=== PATIENT | female | born 1975 | race Caucasian/White ===

== ENCOUNTER → 2019-03-19 14:19 | Outpatient (BNVA) | payer SELFPAY | PROVIDERS: Family Provider Family Medicine; PCP Family Medicine; Visit Provider Anesthesiology | DX: M54.40 Lumbago with sciatica, unspecified side (principal); M25.551 Pain in right hip; Z79.891 Long term (current) use of opiate analgesic | CPT/HCPCS: 99214 ==

== ENCOUNTER → 2019-07-16 09:17 | Outpatient (BNVA) | payer OTHER, SELFPAY | PROVIDERS: Family Provider Family Medicine; PCP Family Medicine; Visit Provider Anesthesiology | DX: M54.41 Lumbago with sciatica, right side (principal); Z79.891 Long term (current) use of opiate analgesic | CPT/HCPCS: 99213; 99214 ==

== ENCOUNTER → 2019-09-03 14:00 | Outpatient (BNVA) | payer OTHER, SELFPAY | PROVIDERS: Family Provider Family Medicine; PCP Family Medicine; Visit Provider Nurse Practitioner | DX: M54.41 Lumbago with sciatica, right side (principal); Z79.891 Long term (current) use of opiate analgesic | CPT/HCPCS: 99213 ==

== ENCOUNTER → 2019-11-14 13:37 | Outpatient (BNVA) | payer OTHER, SELFPAY | PROVIDERS: Family Provider Family Medicine; PCP Family Medicine; Visit Provider Nurse Practitioner | DX: M54.41 Lumbago with sciatica, right side (principal); Z79.891 Long term (current) use of opiate analgesic | CPT/HCPCS: 99213 ==

== ENCOUNTER → 2020-01-16 13:38 | Outpatient (BNVA) | payer OTHER, SELFPAY | PROVIDERS: Family Provider Family Medicine; PCP Family Medicine; Visit Provider Nurse Practitioner | DX: M54.41 Lumbago with sciatica, right side (principal); Z79.891 Long term (current) use of opiate analgesic | CPT/HCPCS: 99213 ==

== ENCOUNTER 2020-02-28 12:52 | Outpatient (CLI) | payer OTHER, SELFPAY ==
--- NOTE | 2020-02-28 12:58 | MM_ITS ---
WS: [id number] BILATERAL DIGITAL SCREENING MAMMOGRAPHY WITH CAD CLINICAL INFORMATION: SCREEN HISTORY: Screening mammogram. No current complaints. COMPARISON: 015 TECHNIQUE: Bilateral CC and MLO views. FINDINGS: Scattered fibroglandular densities bilaterally. No suspicious focal mass, asymmetry, calcifications, or architectural distortion. No evidence of malignancy. Punctate and lucent centered calcifications. MM/[place] [id number] IMPRESSION: BI-RADS: 2-Benign FOLLOW UP: 1 Year Follow-up Recommend return to annual screening mammography.
== END 2020-02-28 12:53 | disposition home or self-care (01) ==
LOC: RADSHAW 12:55
PROVIDERS: PCP Family Medicine; Visit Provider Family Medicine
DX: Z12.31 Encounter for screening mammogram for malignant neoplasm of breast (principal); F41.9 Anxiety disorder, unspecified; F32.9 Major depressive disorder, single episode, unspecified; E78.5 Hyperlipidemia, unspecified
CPT/HCPCS: 77067; 80053; 80061; 82306; 82607; 84439; 84443; 84481; 85025

== ENCOUNTER → 2020-03-19 14:05 | Outpatient (BNVA) | payer OTHER, SELFPAY | PROVIDERS: Family Provider Family Medicine; PCP Family Medicine; Visit Provider Nurse Practitioner | DX: M54.41 Lumbago with sciatica, right side (principal); Z79.891 Long term (current) use of opiate analgesic | CPT/HCPCS: 99213 ==

== ENCOUNTER → 2020-05-14 14:00 | Outpatient (BNVA) | payer OTHER, SELFPAY | PROVIDERS: Family Provider Family Medicine; PCP Family Medicine; Visit Provider Nurse Practitioner | DX: M54.41 Lumbago with sciatica, right side (principal); Z79.891 Long term (current) use of opiate analgesic | CPT/HCPCS: 99212; 99213 ==

== ENCOUNTER → 2020-05-19 15:49 | Outpatient (BNVA) | payer OTHER, SELFPAY | PROVIDERS: Family Provider Family Medicine; PCP Family Medicine; Visit Provider Nurse Practitioner Family | DX: E03.9 Hypothyroidism, unspecified (principal); R79.89 Other specified abnormal findings of blood chemistry; E55.9 Vitamin D deficiency, unspecified; E78.5 Hyperlipidemia, unspecified | CPT/HCPCS: 80053; 80061; 82306; 84443 ==

== ENCOUNTER → 2020-07-15 14:12 | Outpatient (BNVA) | payer OTHER, SELFPAY | PROVIDERS: Family Provider Family Medicine; PCP Family Medicine; Visit Provider Anesthesiology | DX: G89.29 Other chronic pain (principal); M54.41 Lumbago with sciatica, right side; M17.0 Bilateral primary osteoarthritis of knee; Z79.1 Long term (current) use of non-steroidal anti-inflammatories (NSAID); Z79.891 Long term (current) use of opiate analgesic | CPT/HCPCS: 99214 ==

== ENCOUNTER → 2020-08-14 11:20 | Outpatient (BNVA) | payer OTHER, SELFPAY | PROVIDERS: Family Provider Family Medicine; PCP Family Medicine; Visit Provider Obstetrics & Gynecology | DX: N81.9 Female genital prolapse, unspecified (principal); Z20.822 Contact with and (suspected) exposure to COVID-19 | CPT/HCPCS: 87635 ==

== ENCOUNTER 2020-08-19 15:02 | Observation (INO) | payer OTHER, SELFPAY ==
[2020-08-14 12:02] VITALS: BMI 50.4
--- NOTE | 2020-08-14 12:16 | ANES.PREANE2 ---
Pre-Anesthetic Assessment Pre-Anesthetic Assessment: Height/Weight: Height 1.82 m Weight 166.468 kg Proposed Procedure: Operation Date: 08/19/20 10:25 Proposed Procedures p Anterior Repair Anterior Colporrhaphy 06758 [id number] 29443 N81.9(Not Applicable) - Seb Oconnell MD s Posterior Repair(Not Applicable) - Seb Oconnell MD s midurthral single incision sling(Not Applicable) - Seb Oconnell MD s Sacrospinous Ligament Suspension(Not Applicable) - Seb Oconnell MD Was Beta Abraham taken within 24 hours: N/A Was Clonidine taken within 24 hours: N/A Social: Social History: No alcohol and No tobacco Exam: Pre-Anes Outpt Exam: alert, oriented x 3, clear to auscultation bilaterally and regular rate & rhythm Airway: Submandibular: WNL Cervical ROM: WNL MP: 2 Dentition: Full Metabolic: Metabolic: Hyperlipidemia, Morbid obesity and Thyroid Musc/skel: Musc/skel: Lower Back Pain Neuropsych: Neuropsych: Anxiety and Depression Anesthetic Plan: ASA status: 3 Anesthesia: General Risk of > 500 ml blood loss (7ml/kg in children): No PFSH Anesthesia PFSH: Medical History Back pain of lumbosacral region with sciatica Encounter for long-term (current) use of NSAIDs Encounter for long-term use of opiate analgesic Opioid contract exists Surgical History H/O knee surgery History of hysterectomy Family History Mother Hyperlipidemia Thyroid condition Grandmother Hyperlipidemia maternal Thyroid condition maternal Sister Thyroid condition x2 Family/Other Breast cancer maternal side but unknown who Other CAD (coronary artery disease) Diabetes Hypertension Denies family history of Colon cancer Ovarian cancer Clotting disorder Bleeding disorder Uterine cancer Stroke Social History (Updated 08/14/20 @ 10:34 by Nathalia Calix RN) Smoking and tobacco status: never smoked Second hand smoke exposure: Yes Alcohol intake: never Substance/Drug Use: never Data Anesthesia Cardiac Studies: No Data to Display
[2020-08-19] VITALS (22 sets, daily range): BP systolic 105–151; BP diastolic 61–96; PULSE 77–99; RESP 14–20; TEMP 36.2–37.3; O2SAT 90–98; BMI 50.4
[2020-08-19] MEDS: lactated ringers 500 ML IV (09:30)
[2020-08-19] MEDS: enoxaparin 30 mg/0.3 mL Syringe SUBCUT (09:33)
[2020-08-19] MEDS: scopolamine 1.5 Patch 1 PATCH TRANSDERMA (09:35)
[2020-08-19] MEDS: sodium chloride 0.9% 1,000 ML 30 ML IV (10:10)
--- NOTE | 2020-08-19 10:39 | P.ANESUD_ITS ---
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 Proposed Procedure: Operation Date: 08/19/20 10:55 Proposed Procedures p Anterior Repair Anterior Colporrhaphy 27063 [id number] 81000 N81.9(Not Applicable) - Seb Oconnell MD s Posterior Repair(Not Applicable) - Seb Oconnell MD s midurthral single incision sling(Not Applicable) - Seb Oconnell MD s Sacrospinous Ligament Suspension(Not Applicable) - Seb Oconnell MD Any changes to Pre-Anesthetic Assessment?: No Last Intake: Intake Last Liquid Date 08/18/20 Last Liquid Time 22:00 Last Solid Date 08/18/20 Last Solid Time 20:00 Vitals: Temperature 98.2 F 08/19/20 09:05 Temperature Source Temporal Artery S can 08/19/20 09:05 Pulse Rate 79 08/19/20 09:05 Respiratory Rate 18 08/19/20 09:05 Blood Pressure 151/96 08/19/20 09:05 Blood Pressure Laura n 114 08/19/20 09:05 Pulse Oximetry 98 08/19/20 09:05 Oxygen Delivery Me thod 08/19/20 09:22 Exam: Pre-Anes Outpt Exam: alert, oriented x 3, clear to auscultation bilaterally and regular rate & rhythm Cardiac Studies: No Data to Display
[2020-08-19 10:43] LABS: Add Urine Microscopic? YES; Bilirubin Urine Neg (Negative); Blood Urine 2+ (Negative); Glucose Urine UA Norm (Normal); Ketones Urine Negative (Negative); Leukocyte Esterase Urine Negative (Negative); Nitrate Urine Negative (Negative); Protein Urine Neg (Negative); Urine Appearance Clear (CLEAR); Urine Color Straw (Yellow); Urobilinogen Urine Norm (Negative); pH Urine 7 (5-7)
[2020-08-19 10:44] LABS: Basophils % 0.7 %; Eosinophils # 0.2 10^3/uL (0.0-0.8); Eosinophils % 3.1 %; Hematocrit 40.5 % (37.0-47.0); Hemoglobin 13.2 g/dL (11.5-15.3); Lymphocytes # 1.7 10^3/uL (0.8-4.8); Lymphocytes % 29.3 %; Mean Corpuscular HGB Conc 32.6 g/dL (30.0-36.0); Mean Corpuscular Hemoglobin 30.7 pg (28.0-34.0); Mean Corpuscular Volume 94.2 fL (81-99); Mean Platelet Volume 11.7 fL (7.4-10.4); Monocytes # 0.5 10^3/uL (0.2-0.9); Monocytes % 8.7 %; Neutrophils # 3.33 10^3/uL (1.8-7.7); Nucleated Red Blood Cells % 0 %; Platelet Count 258 10^3/cmm (130-400); Red Cell Distribution Width 12.3 % (12.1-15.1); White Blood Count 5.7 10^3/uL (4.0-10.0)
[2020-08-19 10:51] LABS: Add Urine Culture? No; Bacteria Urine TRACE /hpf; Mucus Urine 1+ /hpf; Squamous Epithelial Cell Urine 0-4 /hpf (0-5); WBC Urine 0-4 /hpf (0-5)
[2020-08-19 11:09] LABS: Anion Gap 16.2 (5-19); Blood Urea Nitrogen 15 mg/dL (6-20); Calcium 9.1 mg/dL (8.5-10.5); Carbon Dioxide 24 mmol/L (22-29); Chloride 106 mmol/L (98-107); Glomerular Filtration Rate 133.4 mL/min (90-130); Glucose 85 mg/dL (65-115); Osmolality Calculated 294 mOsm/kg (285-295); Potassium 4.2 mmol/L (3.5-5.1); Sodium 142 mmol/L (136-145)
[2020-08-19] MEDS: acetaminophen 500 mg Tablet 1000 MG PO (12:17)
--- NOTE | 2020-08-19 12:31 | W.PM.OPSUD ---
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
--- NOTE | 2020-08-19 14:56 | P.OP_ITS ---
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 The abdomen, vulva and vagina were prepped and draped in a sterile manner. A time out procedure was performed. Posterior colpoperineorrhaphy was performed with Allis clamps to grasp hymenal caruncles to allow 2-3 fingerbreadths caliber; infiltrated with 1% Lidocaine with epinephrine before triangular incision to excise fibrotic subdermal rectovaginal tissue from old perineal laceration. Fascia dissected off towards vaginal cuff and deemed weakened and thinned-out in midline. The posterior vaginal mucosa is opened in the routine fashion as described previously in Posterior Repair. A finger is inserted through the incision in the posterior vaginal mucosa, dissecting out the rectovaginal space (RVS). The right rectal pillar (RRP) is identified. The rectal pillar can be bluntly perforated either with the finger and with the tip of a long Ольга clamp. A Breisky- Navratil retractor is used for exposing the rectovaginal space in order to enter the pararectal space with retraction of the cardinal ligament, vagina, and rectum. Displacing the rectum to the left and the cardinal ligament and ureter anteriorly. A sponge dissector is used to bluntly dissect the sacrospinous ligament removing areolar tissue. The ischial spine was palpated directly, and a area approximately 2 cm medial to the spine was selected for insertion of the Anchorsure transvaginal sacrospinous fixation system. One end of the suture of Anchoresure system inserted through the sacrospinous ligament is placed through the muscular layer of the vagina. In a similar manner, the second suture is placed. The opposite end of the suture in the sacrospinous ligament is left free and held on a small hemostat. Then traction on this suture will draw the vaginal vault directly to the ligament, where a square knot affixes it to the sacrospinous ligament. After the ata stich is tied the second safety stich is tied. Then the colporrhaphy/vaginal repair is carried out in routine fashion, colporrhaphy performed with interrupted mattress 0-Vicryl sutures.The stage 1 cystocele resolved after fixation and proceeded with the single incision miduretral sling. The anterior vaginal mucosa beneath the midurethra was infiltrated with 0.5% Marcaine with epinephrine. A vertical midline incision was made beneath the midurethra, nearly 1.5 cm length. Careful submucosal dissection was performed bilaterally up to the interior portion of the inferior pubic ramus. The insertion of adductor longus tendon on the patient?s pubic ramus was identified as reference land pippa. Palpated the notch along the internal edge of ischiopu bic ramus where the adductor longus tendon and the inferior pubic ramus meet. The Altis single incision sling (SIS) was selected. With thin porcine graft the mesh of the sling was lined anteriorly and posteriorly with the graft. Then the needle of the SIS inserted aiming at the location of this notch. One of the integrated self-fixating tips place onto the needle by sliding it over the end of the needle. The needle/sling assembly was inserted toward the location of identified reference notch making sure that the flat of the handle is perpendicular to the desired path. The needle was tracked along the posterior surface of the ischiopubic ramus until the midline pippa on the mesh is approximately at the midline position under the urethra. The needle was removed and the same was repeated on the contralateral side until the appropriate sling tension under the urethra was achieved ensuring that the mesh lays flat. The needle was removed and vaginal incision was closed in a running interlocking fashion with 2-0 Vicryl. Then the Oquendo catheter was removed and cystoscope was inserted. The bladder was filled with sterile water. Complete evaluation of the bladder mucosa was performed noting no lacerations, dimpling, tears, bleeding of the mucosa or muscular layers. Both ureteral orifices were identified. Prompt excretion of urine from both ureteral orifices was noted. Cystoscope was withdrawn. The Oquendo catheter was replaced. Excellent hemostasis was obtained. A vaginal pack is placed overnight as postoperative support for the vaginal tissues after graft placement and closure of vaginal incisions. Sponge, lap, needle, and instrument counts were correct times three. The patient was taken to the recovery room, awake and in stable condition.
--- NOTE | 2020-08-19 15:10 | P.PCN_ITS ---
PACU note PACU note: VSS, Good respiratory effort, report to COMMUNICATIONS EDITOR Post-Anesthesia Exam: awake
--- NOTE | 2020-08-19 15:10 | PM.PACU ---
PACU note PACU note: VSS, Good respiratory effort, report to HAIRSPRING TRUER Post-Anesthesia Exam: awake
[2020-08-19] MEDS: fentaNYL 50 mcg/mL INJ 2mL IVP (15:16)
--- NOTE | 2020-08-19 16:22 | PC.NURSE ---
call made to at 1422 lis to active bleeding at the vagina, did not answer, voicemail left.
[2020-08-19] MEDS: lactated ringers 1,000 ML 999 ML IV (17:11)
[2020-08-19] MEDS: sodium chloride 0.9% 100 ML 999 ML IV (17:47)
--- NOTE | 2020-08-19 17:48 | PC.NURSE ---
Juan Pablo GIL, Rose Marie PROGRAMMING DEVELOPMENT PROJECT MANAGER at bedside to take pt down to OR by bed. report given. 1 liz under patient with heavy saturation. 1 lap inside patient vaginal vault.
[2020-08-19] MEDS: ceFAZolin 3,000 MG in sodium chloride 0.9% (100 ml) 100 ML 200 MG IV (18:17)
--- NOTE | 2020-08-19 18:45 | PM.OP ---
Operative Report Date of procedure: August 19, 2020 Pre-op Diagnosis: POP Q vaginal prolapse rectocele stage III. vaginal bleeding Post-op diagnosis: same Post-op Findings: Parauretrhal bleeding and posterior colporrhaphy incision bleeding Procedure Done: Vaginal exam. under anesthesia. Suburethral incision revision. Application of Surgiflow Vaginal packing. Pathology: none sent Anesthesia: General Estimated blood loss (mL): 100 IV fluids (mL): 1,200 Urine output (mL): 100 Complications: bleeding Condition: stable Disposition: PACU Procedure: After obtaining informed consent, the patient was taken to the operating room and placed in the supine position, given general anesthesia, and prepped and draped in sterile fashion. The old boateng cathere was removed. The abdomen, vulva and vagina were prepped and draped in a sterile manner. A new boateng catheter was placed. The vaginal mucosea noted to be bleeding from edges of posterior colporrhaphy and bleeding from paraurethral area. The suburthral incision was opened and slow bleeeding noted. The paraurethral are was treated with Surgiflow hemostatic agent and the incision was closed using O2 Vicril. Excellent hemostasis was obtained. A vaginal pack is placed overnight as postoperative support for the vaginal tissues after closure of vaginal incision. Sponge, lap, needle, and instrument counts were correct times three. The patient was taken to the recovery room, awake and in stable condition.
--- NOTE | 2020-08-19 19:00 | PC.NURSE ---
pt arrived to floor at 1540 vitals 98.0 temp axillary, 79 HR, 16 RR, 95% on 3L o2, 121/72 BP 1620- 97.7 axillary temp, 75HR, 15 RR, 98% O2 on 3L O2, 123/85BP, heavy saturation of pad, pad change 1625-called to update him on pad change 1628- pad change due to heavy saturation of pad with soft ball size clot 1643- in room, upon arrival pt expelled golf ball size clot and the vaginal packing that was placed in surgery. 1648- 1 lap inserted into vagina with ring forceps 1650-70/38 BP 99% O2 on 3L nasal cannula, 59 HR, 13 RR, IV bolus started at 999mL/HR 1655- 87/54. 68HR,99% o2 on 3 L nasal cannula 1700- 18 gauge IV inserted in right hand and flushed with 10mL saline flush, 103/59BP, 73 HR, 99% O2 on 3L nasal Cannula 1705- patient registration representative surgery crew notified to come in 170- 1 lap removed from vagina with ring forceps, 1 lap inserted into vagina with ring forceps 1708 108/64 BP, 71 HR, 15 RR, 99% O2 on 3L nasal Cannula 1713-137/72 BP 1730- 132/72 BP, 70 HR, 98% O2 on 3L nasal Cannula 1748- surgical personal arrive to take pt via bed to OR
--- NOTE | 2020-08-19 19:07 | SUR.PHASEI ---
185: patient into pacu, simple mask at 8l o2 with sats at 97. patient has boateng bag in place and draining yellow/blue urine. vaginal packing in place. order for stat HH received. 1907: Dr Oconnell at bedside speaking with patient. patient awake but drowsy.
[2020-08-19 19:12] LABS: Hematocrit 37.2 % (37.0-47.0); Hemoglobin 11.9 g/dL (11.5-15.3)
--- NOTE | 2020-08-19 19:12 | SUR.PHASEI ---
1911: patient on room air with sats at 92
--- NOTE | 2020-08-19 19:17 | SUR.PHASEI ---
1717: reported HH results to dr matos, he said second unit of prbc can be held for right now. patient room air sat at 89, placed on 2L o2 NC and sats return to 93%. will plan to call report to floor soon.
--- NOTE | 2020-08-19 19:39 | SUR.PHASEI ---
1927: patient taken back to OB awake and drowsy. accompanied by . boateng in place and draining, vaginal packing in place. patient on 3L NC with sats at 94%. report given to cassandra.
--- NOTE | 2020-08-19 19:49 | PC.NURSE ---
pt arrived via bed by pacu nurses @ 193
[2020-08-19] MEDS: HYDROcodone-acetaminophen 5-325 mg Tablet PO (19:55)
[2020-08-19] MEDS: ketorolac 30 mg/mL INJ IVP (19:55)
--- NOTE | 2020-08-19 20:40 | ANE.PACU2 ---
Inpatient post-anesthesia follow up: Airway intact: Yes Vital signs: Temperature 98.4 F Pulse Rate 83 Respiratory Rate 19 Blood Pressure 127/82 Pulse Oximetry 93 Oxygen Delivery Me thod Nasal Cannula Oxygen Flow Rate 2 Fraction of Inspir ed Oxygen Hydration adequate: Yes Nausea and vomiting: No Pain level: 3 Mental status: Baseline
[2020-08-19] MEDS: dextrose 5%-lactated ringers 1,000 ML 125 ML IV (22:10)
[2020-08-19] MEDS: morphine 4 mg/mL SDV 1 mL 1 MG IVP (22:47)
[2020-08-20 01:00] VITALS: BP 105/57; PULSE 78; RESP 16; TEMP 36.8; O2SAT 97
[2020-08-20 05:15] VITALS: BP 108/57; PULSE 73; RESP 14; TEMP 37; O2SAT 93
[2020-08-20 06:17] LABS: Hematocrit 29.7 % (37.0-47.0); Hemoglobin 9.5 g/dL (11.5-15.3); Mean Corpuscular Hemoglobin 30.8 pg (28.0-34.0); Mean Corpuscular Volume 96.4 fL (81-99); Mean Platelet Volume 10.4 fL (7.4-10.4); Platelet Count 227 10^3/cmm (130-400); Red Blood Count 3.08 10^6/uL (4.1-5.3); White Blood Count 13.5 10^3/uL (4.0-10.0)
[2020-08-20] MEDS: dextrose 5%-lactated ringers 1,000 ML 125 ML IV (06:20)
[2020-08-20] MEDS: docusate sodium 100 mg Capsule PO (08:18)
[2020-08-20] MEDS: ibuprofen 800 mg tablet PO (08:18)
--- NOTE | 2020-08-20 09:57 | PC.NURSE ---
Dr. Oconnell at patient bedside. Removed vaginal packing which had several large clots that came with it. Dr. Oconnell was ok with the amount of clots. orders received for PVR.
--- NOTE | 2020-08-20 11:40 | P.DS_ITS ---
Discharge Providers DRUM DRIER OPERATOR Date of Admission: 08/19/20 15:02 Date of Discharge: 08/20/20 Attending Provider at Admission: Seb Oconnell MD Attending Provider at Discharge: Seb Oconnell MD Primary Care Provider: Lashon Malcolm MD Diagnoses at Discharge Discharge Diagnosis (1) POP-Q stage 3 rectocele: Status: Acute (2) MIKE (stress urinary incontinence, female): Status: Acute Reason for Visit Reason for Visit: vaginal prolapse Hospital Course Hospital Course Mrs. Orellana 45-year-old female with vault rectocele stage III and stress urinary incontinence. Admitted for planned anterior colporrhaphy, posterior colporrhaphy mid urethral sling and sacrospinous fixation. After posterior colporrhaphy and sacrospinous fixation, the patient only needed the mid urethral sling. The procedures were performed without complications. The patient did have some usual bleeding during the procedure. After the patient was transferred to her room, a couple hours after she started with significant vaginal bleeding. It was estimated that she had about 1000 ml of blood between pads, chucks and laps. She was taken back to the OR for a vaginal exam under anesthesia. She has some mild bleeding from the edges at the vaginal mucosa, and from paraurethral area. The suburethral incision was opened and venous bleeding was noted. Hemostatic agent Surgi-Goran was applied and the incision was closed again, vaginal packing was applied, tranexamic acid was given, and 1 unit of red blood cell was also given during the procedure. After that the bleeding was controlled. Overnight observation was uneventful. Tolerated diet well. Ambulating without difficulty. She is afebrile and hemodynamically stable. PVR within normal limits. Physical Exam Narrative: EXAM NARRATIVE: GA: Alert and oriented ?3. HEENT: WNL. Heart: Regular rate and rhythm. Lungs: Clear to auscultation bilaterally. Abdomen: Bowel sounds present CALL TAKER: minimal bleeding. Extremities: No edema, no cyanosis, no calves pain. Urinary Catheter Management^: Oquendo: Cath Placed During This Visit: yes, but has since been removed by the nurse Reason for Continuing Indwelling Catheter: Decision to DC Catheter Urinary Catheter Date of Insertion: 08/19/20 Urinary Catheter Time of Insertion: 18:20 Date Urinary Catheter Removed: 08/20/20 Time Urinary Catheter Discontinued: 09:54 Discharge Data Data Completed and Pending: Pending at discharge Category Date Time Status ES surgery / GI i mages Routine Exams 08/19/20 12:37 Taken PACKED CELLS [Alex kocyte Reduced RBC ] Routine Lab 08/19/20 09:30 Results Type and Screen R outine Lab 08/19/20 09:30 Results Labs from last 24 hours 08/20/20 08/19/20 08/19/20 06:10 19:02 09:30 WBC 13.5 H RBC 3.08 L Hgb 9.5 L 11.9 Hct 29.7 L 37.2 MCV 96.4 MCH 30.8 MCHC 32.0 RDW 14.0 Plt Count 227 MPV 10.4 Blood Type O Positive Rho(D) Type Positive / 4+ Antibody Screen Negative Crossmatch See Detail Vitals: Last Vital Signs Temp 98.6 F 08/20/20 05:15 Pulse 73 08/20/20 05:15 Resp 14 08/20/20 05:15 BP 108/57 08/20/20 05:15 Pulse Ox 93 08/20/20 05:15 Discharge Plan Discharge Patient Disposition: Home Condition: Stable Prescriptions: New ibuprofen 800 mg tablet 800 mg PO TID PRN (Reason: pain) Qty: 60 RF: 0 hydrocodone-acetaminophen 5-325 mg tablet 1 tab PO Q4H PRN (Reason: pain) Qty: 10 RF: 0 Iron (ferrous sulfate) 325 mg (65 mg iron) tablet 325 mg PO BID Qty: 30 RF: 0 nitrofurantoin macrocrystal 100 mg capsule 100 mg PO Q24H Qty: 10 RF: 0 Colace 100 mg capsule 100 mg PO BID Qty: 90 RF: 0 Continued rosuvastatin [Crestor] 10 mg tablet 10 mg PO DAILY RF: 0 escitalopram oxalate 20 mg tablet See Rx Instructions .ROUTE .COMPLEX Qty: 30 RF: 5 diclofenac potassium 50 mg tablet 50 mg PO BID 30 Days Qty: 60 RF: 1 oxycodone 10 mg tablet 10 mg PO QID PRN (Reason: pain) 30 Days Qty: 120 RF: 0 tizanidine 4 mg tablet 4 mg PO QID PRN (Reason: muscle spasticity) 30 Days Qty: 120 RF: 1 (DME) Hinged knee brace See Rx Instructions .Route .MEDSUPPLY Qty: 1 RF: 0 cholecalciferol (vitamin D3) 125 mcg (5,000 unit) capsule 125 mcg PO DAILY Qty: 90 RF: 1 levothyroxine 50 mcg tablet See Rx Instructions .ROUTE .COMPLEX Qty: 90 RF: 0 Discharge Orders: Discharge Order (Routine); Ordered 08/20/20 Ordered By: Seb Oconnell Referrals: Seb Oconnell MD [Physician] - 09/01/20 10:45 am (Your 2 week post-op appointment is scheduled for 09/01/20 @ 10:45. Your 6 week post-op appointment is scheduled for 09/29/20 @ 10:45. ) Discharge Diet: Soft Mechanical Discharge Activity: Increase activity as tolerated Patient Instructions: Rectocele (GEN), Bladder Sling Procedures (DC), Posterior Vaginal Repair (DC), OB Discharge Report, Opioid Safety Activity Restrictions/Additional Instructions: 1. Please call [facility] on next working day to make your post-operative appointment in 2 weeks. 2. Please stay home until you come back to the clinic on first post-operative check up. 3. Please follow instructions on your medications CAREFULLY. 4. If you have abdominal incision, do not cover it unless dressing is necessary because of drainage. OK to shower, but avoid bath. Leave steri-strips until they fall off. If they are still on one week after surgery, you may remove them. 5. If you had vaginal surgery or vaginal repair, Dr. Oconnell may instruct you to take SITZ bath. 6. Yellow, blood tinged odorous vaginal discharge is usually normal after hysterectomy or vaginal surgeries. 7. No sexual intercourse, tampons, or douches until you are completely released from the post-operative care. 8. Avoid constipation by eating right and maybe using some Metamucil or Milk of Magnesia. 9. All prescription refills are given during the working hours. Please do no wait till it runs out. Call the clinic at [phone] before your medication runs out. The clinic will get in touch with your doctor to prescribe medications if necessary. 10. Please remain within 40 mile radius from our hospital because emergencies do happen now and then during the post-operative period. 11. If you have stairs at home, take one step at a time slowly and minimize the number of trips. It helps to stay in one floor for the next few days. No lifting except what you can lift by one hand until you are released from the post-operative care. 12. Driving is discouraged until you are well healed. It may be 3-4 weeks before you feel strong enough to drive. You should be able to turn and look through the rear window without pain and you should be able to push the brake pedal very hard without pain before you drive. No fast rules, but SAFETY should be your primary concern. DO NOT drive if you are on sedating medications such as narcotics. 13. Call the clinic (during working hours) to make urgent appointment or go to the Emergency room, if any of the following occurs: i. Vaginal bleeding becomes heavy, more than a period. ii. Incision becomes red and sore, or drains pus. iii. Your temperature is over 100.4 or you have chill. iv. IV site becomes red and swollen (a little ``knot?? is usually OK) v. Persistent nausea and vomiting vi. Persistent constipation or diarrhea vii. Rash or allergic reaction to medications. 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
[2020-08-20 12:43] VITALS: BP 107/67; PULSE 73; RESP 14; TEMP 37.2; O2SAT 94
== END 2020-08-20 12:59 | disposition home or self-care (01) ==
LOC: OBGYN 15:07
PROVIDERS: Admitting Provider Obstetrics & Gynecology; PCP Family Medicine; Visit Provider Obstetrics & Gynecology
PROC: (CPT 57250; 2020-08-19 10:45)
PROC: (CPT 57288; 2020-08-19 10:45)
PROC: (CPT 57282; 2020-08-19 10:45)
PROC: 0UQG0ZZ Repair Vagina, Open Approach (ICD-10-PCS; CPT 57200; principal; 2020-08-19 17:30)
DX: N81.6 Rectocele (principal); N39.3 Stress incontinence (female) (male); N81.10 Cystocele, unspecified; N93.9 Abnormal uterine and vaginal bleeding, unspecified; E78.5 Hyperlipidemia, unspecified; E66.01 Morbid (severe) obesity due to excess calories; Z68.43 Body mass index [BMI] 50.0-59.9, adult; F41.9 Anxiety disorder, unspecified; F32.9 Major depressive disorder, single episode, unspecified
CPT/HCPCS: 57200; 57250; 57282; 57288; 36415; 36430; 51798; 80048; 81001; 85014; 85018; 85025; 85027; 86850; 86900; 86920; 96374; 96375; C1713; G0378; J0330; J0690; J1100; J1650; J1885; J2250; J2270; J2405; J2704; J3010; J7030; J7050; P9016; Q9968

== ENCOUNTER → 2020-09-10 14:20 | Outpatient (BNVA) | payer OTHER, SELFPAY | PROVIDERS: PCP Family Medicine; Visit Provider Anesthesiology | DX: G89.29 Other chronic pain (principal); M54.41 Lumbago with sciatica, right side; M17.0 Bilateral primary osteoarthritis of knee; Z79.891 Long term (current) use of opiate analgesic | CPT/HCPCS: 99214 ==

== ENCOUNTER → 2020-11-18 14:33 | Outpatient (BNVA) | payer OTHER, SELFPAY | PROVIDERS: PCP Family Medicine; Visit Provider Nurse Practitioner | DX: M54.40 Lumbago with sciatica, unspecified side (principal); M25.561 Pain in right knee; M25.562 Pain in left knee; M79.671 Pain in right foot; M79.672 Pain in left foot; Z79.1 Long term (current) use of non-steroidal anti-inflammatories (NSAID); Z79.891 Long term (current) use of opiate analgesic | CPT/HCPCS: 99214 ==

== ENCOUNTER → 2020-12-15 13:50 | Outpatient (BNVA) | payer OTHER, SELFPAY | PROVIDERS: PCP Family Medicine; Visit Provider Anesthesiology | DX: G89.29 Other chronic pain (principal); M54.40 Lumbago with sciatica, unspecified side; M25.561 Pain in right knee; M25.562 Pain in left knee; Z79.891 Long term (current) use of opiate analgesic; Z79.1 Long term (current) use of non-steroidal anti-inflammatories (NSAID) | CPT/HCPCS: 99214 ==

== ENCOUNTER → 2021-01-15 11:55 | Outpatient (BNVA) | payer OTHER, SELFPAY | PROVIDERS: PCP Nurse Practitioner Family; Visit Provider Nurse Practitioner Family | DX: E03.9 Hypothyroidism, unspecified (principal); E55.9 Vitamin D deficiency, unspecified; F41.9 Anxiety disorder, unspecified; F32.9 Major depressive disorder, single episode, unspecified; E78.5 Hyperlipidemia, unspecified; R79.89 Other specified abnormal findings of blood chemistry | CPT/HCPCS: 80053; 80061; 82306; 84439; 84443; 84481; 85025; 86376 ==

== ENCOUNTER 2021-02-10 15:35 | Outpatient (CLI) | payer OTHER, SELFPAY ==
[2021-02-10 16:27] LABS: Estmated Average Glucose 117; Hemoglobin A1C 5.7 % (4.0-6.0)
== END 2021-02-10 15:36 | disposition home or self-care (01) ==
LOC: LAB 15:38
PROVIDERS: PCP Nurse Practitioner Family; Visit Provider Internal Medicine
DX: Z13.1 Encounter for screening for diabetes mellitus (principal); E03.9 Hypothyroidism, unspecified
CPT/HCPCS: 83036

== ENCOUNTER → 2021-05-28 11:25 | Outpatient (BNVA) | payer OTHER, SELFPAY | PROVIDERS: PCP Family Medicine; Visit Provider Family Medicine | DX: E03.8 Other specified hypothyroidism (principal); E06.3 Autoimmune thyroiditis; E78.5 Hyperlipidemia, unspecified | CPT/HCPCS: 80061; 84439; 84443 ==

== ENCOUNTER → 2021-07-05 16:20 | Outpatient (BNVA) | payer OTHER, SELFPAY | PROVIDERS: PCP Family Medicine; Visit Provider Family Medicine | DX: Z01.818 Encounter for other preprocedural examination (principal) | CPT/HCPCS: 71046; 80053; 85025 ==

== ENCOUNTER 2021-09-20 14:36 | Outpatient (CLI) | payer OTHER, SELFPAY ==
--- NOTE | 2021-09-20 14:51 | XR_ITS ---
WS: [id number] XR lumbar spine f/e only [id number] REASON FOR EXAM: VERTEBROGENIC LOW BACK PAIN FINDINGS: No significant compression deformity or other focal vertebral body lesion. Small anterior osteophytes L1-S1. Intervertebral disc spaces are relatively well-preserved. No significant spondylolisthesis. No spondylolysis identified. No abnormal vertebral body movement with flexion and extension. XR/XR lumbar spine f/e only [id number] IMPRESSION: Mild changes of degenerative spondylosis.
== END 2021-09-20 14:37 | disposition home or self-care (01) ==
LOC: RAD 14:44
PROVIDERS: PCP Family Medicine; Visit Provider Nurse Practitioner
DX: M54.51 Vertebrogenic low back pain (principal)
CPT/HCPCS: 72120

== ENCOUNTER → 2022-01-28 11:22 | Outpatient (BNVA) | payer OTHER, SELFPAY | PROVIDERS: PCP Family Medicine; Visit Provider Nurse Practitioner Family | DX: E03.9 Hypothyroidism, unspecified (principal); M25.561 Pain in right knee; M25.562 Pain in left knee; E78.5 Hyperlipidemia, unspecified; M54.40 Lumbago with sciatica, unspecified side; F32.9 Major depressive disorder, single episode, unspecified; F41.9 Anxiety disorder, unspecified; E55.9 Vitamin D deficiency, unspecified; Z13.1 Encounter for screening for diabetes mellitus | CPT/HCPCS: 80053; 80061; 82306; 82607; 83036; 84439; 84443; 85025 ==

== ENCOUNTER → 2022-06-17 11:12 | Outpatient (BNVA) | payer OTHER, SELFPAY | PROVIDERS: PCP Family Medicine; Visit Provider Nurse Practitioner Family | DX: M25.561 Pain in right knee (principal); M25.562 Pain in left knee; M54.40 Lumbago with sciatica, unspecified side; E03.9 Hypothyroidism, unspecified; H10.9 Unspecified conjunctivitis; F41.9 Anxiety disorder, unspecified; F32.9 Major depressive disorder, single episode, unspecified | CPT/HCPCS: 80053; 84443; 85025 ==

== ENCOUNTER → 2022-10-19 14:52 | Outpatient (BNVA) | payer OTHER, SELFPAY | PROVIDERS: PCP Nurse Practitioner Family; Visit Provider Family Medicine | DX: K91.2 Postsurgical malabsorption, not elsewhere classified (principal); Z13.21 Encounter for screening for nutritional disorder; Z98.84 Bariatric surgery status | CPT/HCPCS: 80053; 80061; 82306; 82607; 82746; 83036; 83735; 84425; 85025 ==

== ENCOUNTER → 2023-03-13 15:45 | Outpatient (BNVA) | payer OTHER, SELFPAY | PROVIDERS: PCP Nurse Practitioner Family; Visit Provider Nurse Practitioner Family | DX: M54.40 Lumbago with sciatica, unspecified side (principal); M25.561 Pain in right knee; M25.562 Pain in left knee; E03.8 Other specified hypothyroidism; E06.3 Autoimmune thyroiditis | CPT/HCPCS: 80053; 84439; 84443 ==

== ENCOUNTER → 2023-04-22 13:12 | Outpatient (BNVA) | payer OTHER, SELFPAY | PROVIDERS: PCP Nurse Practitioner Family; Visit Provider Emergency Medicine | DX: S69.91XA Unspecified injury of right wrist, hand and finger(s), initial encounter (principal); W22.8XXA Striking against or struck by other objects, initial encounter | CPT/HCPCS: 73130 ==

== ENCOUNTER 2024-06-11 14:17 | Outpatient (CLI) | payer OTHER, SELFPAY ==
[2024-06-11 15:38] LABS: Free T4 Free Thyroxine 1.27 ng/dL (0.82-1.77); Thyroid Stimulating Hormone 2.48 uIU/mL (0.27-4.20)
[2024-06-12 09:49] LABS: T3 Total 74 ng/dL (76-181)
== END 2024-06-11 14:18 | disposition home or self-care (01) ==
PROVIDERS: PCP Electrodiagnostic Medicine; Visit Provider Internal Medicine
DX: E78.5 Hyperlipidemia, unspecified (principal); E66.9 Obesity, unspecified; E03.8 Other specified hypothyroidism; E06.3 Autoimmune thyroiditis
CPT/HCPCS: 36415; 84439; 84443; 84480; 86003; 86008

== ENCOUNTER → 2024-08-23 13:11 | Outpatient (BNVA) | payer OTHER, SELFPAY | PROVIDERS: PCP Electrodiagnostic Medicine; Visit Provider Internal Medicine | DX: E03.8 Other specified hypothyroidism (principal); E06.3 Autoimmune thyroiditis | CPT/HCPCS: 36415; 84439; 84443; 84480 ==

== ENCOUNTER 2024-11-05 17:05 | Emergency (ER) | payer OTHER, SELFPAY ==
[2024-11-05 17:08] VITALS: BP 115/76; PULSE 78; RESP 18; TEMP 36.6; O2SAT 98
--- OUTSIDE RECORDS SUMMARY | 2024-11-05 17:10 | XMS_ITS | Patient Health Record ---
Author Organization [facility] Address [address] [place] [address] Care Team Providers Care Simplex Printer Installer Name Role Phone Germain Raúl NOLAND Primary Care Provider Unavail able Rianer Sky Unavailable [phone] Higinio Bautista Unavailable Unavailable Maci Rosa Unavailable [phone] Allergies Allergen (clinical drug ingredient) Drug/Non Drug Allergy documented on EMR Reaction Allergy Type Onset Date Status gabapentin Gabapentin Unknown Drug Allergy Activ e tramadol traMADol Unknown Drug Allergy Active Results Component Value Reference Range Flag Notes Schedule Confirmation (Not y et reviewed by provider) Interpretation: Performing Lab: Notes/Report: MRI Lumbar Spine w/o Cont IMH MRI Lumbar Spine w/o Con [id number] (Not yet reviewed by provider) Interpretation: Performing Lab: Notes/Report: See Below For Report MRI Lumbar Spine w/o Cont Enedelia Woods 09/19/2024 06:44:04 AM CDT > No PA Required [id number] Read See Below For Report Schedule Confirmation (Not y et reviewed by provider) Interpretation: Performing Lab: Notes/Report: MRI Lumbar Spine w/o Cont Schedule Confirmation (Not y et reviewed by provider) Interpretation: Performing Lab: Notes/Report: MRI Lumbar Spine w/o Cont Tox Results Reviewed date:10/30/2024 02:00:42 PM Interpretation: Performing Lab: Notes/Report: Urine Confirmation Panel (in strument) - [id number] Reviewed date:10/30/2024 01:12:51 PM Interpretation: Performing Lab: Notes/Report: 6-Acetylmorphine 0 <6 ng/mL N This ivania t was developed and its performance characteristics determined by [facility]. It has not been cleared or approved by the U.S. Food and Drug Administration. 7-Aminoclonazepam 0 <60 ng/mL N This te st was developed and its performance characteristics determined by [facility]. It has not been cleared or approved by the U.S. Food and Drug Administration. Alprazolam 0 <60 ng/mL N This test was developed and its performance characteristics determined by [facility]. It has not been cleared or approved by the U.S. Food and Drug Administration. Amphetamine 0 <75 ng/mL N This test was developed and its performance characteristics determined by [facility]. It has not been cleared or approved by the U.S. Food and Drug Administration. aOH-Alprazolam 0 <60 ng/mL N This test was developed and its performance characteristics determined by [facility]. It has not been cleared or approved by the U.S. Food and Drug Administration. Buprenorphine 0.0 <7.5 ng/mL N This test w as developed and its performance characteristics determined by [facility]. It has not been cleared or approved by the U.S. Food and Drug Administration. Norbuprenorphine 0.0 <37.5 ng/mL N This te st was developed and its performance characteristics determined by [facility]. It has not been cleared or approved by the U.S. Food and Drug Administration. Carisoprodol 0 <75 ng/mL N This test wa s developed and its performance characteristics determined by [facility]. It has not been cleared or approved by the U.S. Food and Drug Administration. Codeine 0 <75 ng/mL N This test was developed and its performance characteristics determined by [facility]. It has not been cleared or approved by the U.S. Food and Drug Administration. EDDP 0 <75 ng/mL N This test was developed and its performance characteristics determined by [facility]. It has not been cleared or approved by the U.S. Food and Drug Administration. Fentanyl 0 <6 ng/mL N This test was developed and its performance characteristics determined by [facility]. It has not been cleared or approved by the U.S. Food and Drug Administration. Hydrocodone 0 <75 ng/mL N This test was developed and its performance characteristics determined by [facility]. It has not been cleared or approved by the U.S. Food and Drug Administration. Hydromorphone 0 <75 ng/mL N This test w as developed and its performance characteristics determined by [facility]. It has not been cleared or approved by the U.S. Food and Drug Administration. Lorazepam 0 <60 ng/mL N This test was developed and its performance characteristics determined by [facility]. It has not been cleared or approved by the U.S. Food and Drug Administration. MDMA 0 <75 ng/mL N This test was developed and its performance characteristics determined by [facility]. It has not been cleared or approved by the U.S. Food and Drug Administration. Meperidine 0.0 <37.5 ng/mL N This test was developed and its performance characteristics determined by [facility]. It has not been cleared or approved by the U.S. Food and Drug Administration. Meprobamate 0 <75 ng/mL N This test was developed and its performance characteristics determined by [facility]. It has not been cleared or approved by the U.S. Food and Drug Administration. Methamphetamine 0 <75 ng/mL N This test was developed and its performance characteristics determined by [facility]. It has not been cleared or approved by the U.S. Food and Drug Administration. Methadone 0 <75 ng/mL N This test was developed and its performance characteristics determined by [facility]. It has not been cleared or approved by the U.S. Food and Drug Administration. Morphine 0 <75 ng/mL N This test was developed and its performance characteristics determined by [facility]. It has not been cleared or approved by the U.S. Food and Drug Administration. Nordiazepam 0 <60 ng/mL N This test was developed and its performance characteristics determined by [facility]. It has not been cleared or approved by the U.S. Food and Drug Administration. Norfentanyl 0 <6 ng/mL N This test was developed and its performance characteristics determined by [facility]. It has not been cleared or approved by the U.S. Food and Drug Administration. Normeperidine 0.0 <37.5 ng/mL N This test was developed and its performance characteristics determined by [facility]. It has not been cleared or approved by the U.S. Food and Drug Administration. O-desmethyltramadol 1 <75 ng/mL N This test was developed and its performance characteristics determined by [facility]. It has not been cleared or approved by the U.S. Food and Drug Administration. Oxazepam 0 <60 ng/mL N This test was developed and its performance characteristics determined by [facility]. It has not been cleared or approved by the U.S. Food and Drug Administration. Oxycodone 685.2 <37.5 ng/mL H This test was developed and its performance characteristics determined by [facility]. It has not been cleared or approved by the U.S. Food and Drug Administration. Oxymorphone 536 <75 ng/mL H This test was developed and its performance characteristics determined by [facility]. It has not been cleared or approved by the U.S. Food and Drug Administration. Phencyclidine 0.0 <7.5 ng/mL N This test w as developed and its performance characteristics determined by [facility]. It has not been cleared or approved by the U.S. Food and Drug Administration. Tapentadol 0.0 <37.5 ng/mL N This test was developed and its performance characteristics determined by [facility]. It has not been cleared or approved by the U.S. Food and Drug Administration. Temazepam 0 <60 ng/mL N This test was developed and its performance characteristics determined by [facility]. It has not been cleared or approved by the U.S. Food and Drug Administration. Tramadol 0 <75 ng/mL N This test was developed and its performance characteristics determined by [facility]. It has not been cleared or approved by the U.S. Food and Drug Administration. Norhydrocodone 0 <75 ng/mL N This test was developed and its performance characteristics determined by [facility]. It has not been cleared or approved by the U.S. Food and Drug Administration. Noroxycodone 1144 <38 ng/mL H This test wa s developed and its performance characteristics determined by [facility]. It has not been cleared or approved by the U.S. Food and Drug Administration. Pregabalin 0 <225 ng/mL N This test was developed and its performance characteristics determined by [facility]. It has not been cleared or approved by the U.S. Food and Drug Administration. Gabapentin 0 <225 ng/mL N This test was developed and its performance characteristics determined by [facility]. It has not been cleared or approved by the U.S. Food and Drug Administration. Benzoylecgonine 0.0 <37.5 ng/mL N This ivania t was developed and its performance characteristics determined by [facility]. It has not been cleared or approved by the U.S. Food and Drug Administration. 4-Hydroxy Xylazine 0 <25 ng/mL N This t est was developed and its performance characteristics determined by [facility]. It has not been cleared or approved by the U.S. Food and Drug Administration. Urine Drug Screen (cup read) - [id number] Reviewed date:10/23/2024 01:21:15 PM Interpretation: Performing Lab: Notes/Report: OXY + MRI Lumbar Spine w/o [id number] (Not yet reviewed by provider) Interpretation: Performing Lab: Notes/Report: [id number] Reason For Referral Reason eval and treat Diagnosis 1 Vertebrogenic low ba ck pain (M54.51) Referring Provider First Name Higinio Referring Provider Last Name Michele Referring Provider Speciality Pain Medic in[facility] Referred Organization [facility] Referred Provider Rainer Sky Referred Address [address] [place] [id number], Referred Provider Specialty [facility] General Notes Dania Art 09:29:32 AM >mailing npp, scheduled pt Referral Priority Routine Medications Medication SIG (Take, Route, Frequency, Duration) Notes Start Date End Date Status Ibuprofen Ibuprofen 08/11/2010 Active oxyCODONE HCl 10 MG Tablet 1 tablet as needed Orally every 6 hrs; Duration: 30 days As needed Not to exceed 4 per day Fill 11/01/2024 10/23/2024 12/01/2024 Active Citalopram 40 MG Oral Tablet Citalopram 40 MG Oral Tablet 08/11/2010 Active Social History Tobacco Use: Social History Observation Description Date Details (start date - stop date) Never Smoker NA - NA Social History Tobacco Use: Social Info Question Answer Notes Tobacco Control (Standard) Tobacco use: Nonsmoker Additional Details Category Social Info Options Details Miscellaneous: Sexually active: yes Sexual abuse: no Drugs/Alcohol: Do you smoke marijuana? De nies Do you drink alcohol? No Problems Problem Type SNOMED Code ICD Code Onset Dates Problem Status W/U Status Risk Notes Problem Chronic pain syndrome (383638963) Chronic pain syndrome (G89.4) Active confirmed Problem Lumbosacral spondylosis without myelopathy (04224591) Other spondylosis with radiculopathy, lumbar region (M47.26) Active confirmed Problem Lumbar radiculopathy (400876566) Lumbar radiculopathy (M54.16) Active confirmed Problem Lumbar spondylosis (065926087) Lumbar spondylosis (M47.816) Active confirmed Problem Obesity (544449194) Obesity (E66.9) Active confirmed Problem Abnormal gait (44489915) Abnormality of gait and mobility (R26.9) Active confirmed Vital Signs Height-cm 180.34 cm 10/23/2024 Weight-kg 131.09 kg 10/23/2024 Height 71.00 in 10/23/2024 Weight 289 lbs 10/23/2024 BMI 40.3 kg/m2 10/23/2024 Encounters Encounter Location Date Provider Diagnosis [facility] [address] [address] 09/18/2024 Rainer Goodenfft Chronic pain syndrom e G89.4 ; Other spondylosis with radiculopathy, lumbar region M47.26 ; Abnormality of gait and mobility R26.9 ; Obesity E66.9 ; lobsterman (current) use of opiate analgesic Z79.891 ; Lumbar radiculopathy M54.16 and Lumbar spondylosis M47.816 [facility] [address] [address] 10/23/2024 Rainer Sky Chronic pain syndrom e G89.4 ; Other spondylosis with radiculopathy, lumbar region M47.26 ; Abnormality of gait and mobility R26.9 ; Right knee pain, unspecified chronicity M25.561 ; Obesity E66.9 ; detention (current) use of opiate analgesic Z79.891 ; Lumbar radiculopathy M54.16 and Lumbar spondylosis M47.816 Assessments Encounter Date Diagnosis (ICD Code) Assessment Notes Treatment Notes Treatment Clinical Notes Section Notes 09/18/2024 Chronic pain syndrome (ICD-10 - G89.4) I had a nice visit with the patient today regarding her chronic pain issues. Based on her hx and PE, the worst of the symptoms appears consistent with lumbar spondylosis and radiculitis mainly on the right side at the L4-5 distribution. This is in the setting of a long hx of morbid obesity with chronic high-dose opiates. She has maintained on this oxycodone 15 mg four times daily. A dosage for many years that she finds partially effective. I informed her that this is not something I would recommend continuing. I would recommend getting updated imaging with a lumbar MRI, especially since it's been many years and she's lost a great amount of weight since the last imaging. I will drop her to oxycodone 10 mg tablets four times daily. She's going to utilize her remaining medication to taper down a little bit. We will plan to see her back in about 5 weeks. Hopefully, we will have her images to review and proceed accordingly. 09/18/2024 Other spondylosis with radiculopathy, lumbar region (ICD-10 - M47.26) 10/23/2024 Chronic pain syndrome (ICD-10 - G89.4) I had a nice visit with the patient today regarding her chronic pain issues. It sounds like she has been working a lot lately. This has taken a toll on her. She has adjusted to the medication dosage change. We will continue the medication unchanged and see her back in five weeks. She has an appointment for her MRI scheduled for the , so hopefully, after the visit, we can review the results and adjust her treatment accordingly. 10/23/2024 Other spondylosis with radiculopathy, lumbar region (ICD-10 - M47.26) 09/18/2024 Abnormality of gait and mobility (ICD-10 - R26.9) 10/23/2024 Abnormality of gait and mobility (ICD-10 - R26.9) 09/18/2024 Obesity (ICD-10 - E66.9) 10/23/2024 Right knee pain, unspecified chronicity (ICD-10 - M25.561) 10/23/2024 Obesity (ICD-10 - E66.9) 09/18/2024 detention (current) use of opiate analgesic (ICD-10 - Z79.891) 09/18/2024 Lumbar radiculopathy (ICD-10 - M54.16) 10/23/2024 lobsterman (current) use of opiate analgesic (ICD-10 - Z79.891) 10/23/2024 Lumbar radiculopathy (ICD-10 - M54.16) 09/18/2024 Lumbar spondylosis (ICD-10 - M47.816) 10/23/2024 Lumbar spondylosis (ICD-10 - M47.816) 09/18/2024 Other Audi, Lainey Dempsey, am scribing for Dr. Rainer Sky. I, Dr. Rainer Sky, personally performed the services described in this documentation, as scribed by Lainey Dempsey, and it is both accurate and complete. 10/23/2024 Other Audi, Lainey Dempsey, am scribing for Dr. Rainer Sky. I, Dr. Rainer Sky, personally performed the services described in this documentation, as scribed by Lainey Dempsey, and it is both accurate and complete. Plan Of Treatment Pending Test Test Name Order Date MRI Lumbar Spine w/o [id number] 09/19/19 Schedule Confirmation 11/01/2024 Schedule Confirmation 11/01/2024 Schedule Confirmation 11/01/2024 [facility] MRI Lumbar Spine w/o Cont-[id number] 10/14 Next Appt Details Provider Name:Vangie haas, 11/28/2024 02:20:00 PM, [address] [place], [address], Insurance Providers Payer Name Payer Address Payer Phone Subscriber Number Group Number Insured Name Patient Relationship to Insured Coverage Start Date Coverage End Date [facility] [address] [address] [place] [address] [phone] [id number] JUNG ORELLANA Self - patient is the insured Medical (General) History Medical History History ICD Code Problem:Arthralgia of the lower leg (fin ding) , Status :: Active Depression Arthritis constipation Thyroid disease Surgical History Surgery Date(Month/Year) hysterectomy gall bladder removal arthroscopic knee surgery gastric bypass cataract removal
--- OUTSIDE RECORDS SUMMARY | 2024-11-05 17:10 | XMS_ITS | Clinical Summary ---
Author Organization [facility] Address [address] [address] [place] [address] Phone Care Team Providers Care Chalk Molding Machine Operator Name Role Phone Estefani Isaac MD Primary Care Provider [phone] Allergies Active Allergy Reactions Criticality Noted Date Comments Gabapentin Palpitations Low 07/01/2021 Tramadol Itching Low 07/01/2021 Medications oxycodone HCl (OXYCODONE ORAL) Take 5 mg by mouth see administration instructions. UP TO FIVE TIMES A DAY PRN Active levothyroxine 50 mcg tablet Take 50 mcg by mouth see administration instructions. MON THROUGH Monday 50MCG; 100MCG SAT/SUN Active escitalopram oxalate (LEXAPRO) 20 mg tablet Take 20 mg by mouth daily. Active tiZANidine (ZANAFLEX) 4 mg Tablet Take 4 mg by mouth every 6 hours as needed for Spasm. Active rosuvastatin (CRESTOR) 20 mg tablet Take 20 mg by mouth daily. 2 Active pantoprazole (PROTONIX) 40 mg Tablet, Delayed Release (E.C.) Take 40 mg by mouth daily. Active HYDROcodone-ac etaminophen (HYCET) 7.5-325 mg/15 mL SolutionIndica tions:Morbid obesity (CMS/HCC) Take 15 mL by mouth every 6 hours as needed for Pain, Severe. Max Daily Amount: 60 mL 300 mL 08/05/2021 12:44 PM CDT 2 Active ondansetron (ZOFRAN ODT) 4 mg Tablet, Rapid Dissolve Dissolve 1 tablet on top of tongue, then swallow with saliva every 6 hours as needed for Nausea/Vomiting. 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 Gastroesophageal reflux disease without esophagi tis 08/04/2021 Anxiety and depression 08/04/2021 Hyperlipidemia 08/04/2021 Postoperative nausea and vomiting 08/04/2021 Postoperative pain 08/04/2021 General medical exam 08/04/2021 Family History Medical History Relation Name Comments High Cholesterol Maternal Grandmother Thyroid Disease Maternal Grandmother Diabetes Mother High Cholesterol Mother Thyroid Disease Mother Thyroid Disease Sister Relation Name Status Comments Maternal Grandmother Mother Sister Social History Tobacco Use Types Packs/Day Years Used Date Smoking Tobacco: Never Smokeless Tobacco: Never Alcohol Use Standard Drinks/Week Comments Not Currently 0 (1 standard drink = 0.6 oz pur e alcohol) Comments No Sex and Gender Information Value Date Recorded Sex Assigned at Not on file Legal Sex Female 11:20 AM CDT Gender Identity Not on file Sexual Orientation Not on file Last Filed Vital Signs Vital Sign Reading Time Taken Comments Blood Pressure 142/83 08/05/2021 12:23 PM CDT Pulse 60 08/05/2021 12:23 PM CDT Temperature 36.8 C (98.2 F) 08/05/2021 12:23 PM CDT Respiratory Rate 16 08/05/2021 12:2 3 PM CDT Oxygen Saturation 98% 08/05/2021 12: 23 PM CDT Inhaled Oxygen Concentration - - Weight 161.3 kg (355 lb 9.6 oz) 08/05/2021 3:09 AM CDT Height 181.6 cm (5' 11.5 ) 08/03/2021 1 2:48 PM CDT Body Mass Index 48.9 08/03/2021 12:48 PM CDT Plan of Treatment Health Maintenance Due Date Last Done Comments Pre-Diabetes and Diabetes Screening 1975 DTAP/TDAP/TD VACCINES (1 - Tdap) 1994 HEPATITIS B VACCINES (1 of 3 - 19+ 3-dose series) 07/1993 HPV/Cotest (21-29) 01/19/1996 CERVICAL CANCER SCREENING 2005 HPV/Cotest (30-65) 2005 PAP SMEAR 2005 BREAST CANCER SCREENING 2015 COLORECTAL SCREENING 01/19/2020 Colorectal Cancer Screening 01/19/2020 FIT-DNA Q 3 years 01/19/2020 FIT/FOBT Q 1 year 01/19/2020 Flex Sig/CT Colonography Q 5 years 01/19/2020 INFLUENZA VACCINE (#1) 2024 Medical Devices Implanted Type Area Welt Stitcher Device Identifier Shelf Expiration Date Model / Serial / Lot Seamguard Endogia 60 Blk [id number] - [id number] Implanted:Qty : 2 on 08/04/2021 by Olvin Claudio MD at [facility] Biological N/A: Stomach [employer] 03/16/2024 [id number] / / [id number] Seamguard Endogia 60 Prpl [id number] - [id number] Implanted:Qty : 3 on 08/04/2021 by Olvin Claudio MD at [facility] Biological N/A: Stomach [employer] 03/03/2024 [id number] / / [id number] [place] [address] RX [employer] (INTERNAL) [facility] [employer] RX [employer] Commercial Advance Directives For more information, please contact: [phone] * Full Code (Latest Code Status on File) Date Activated Date Inactivated Comments 08/04/2021 9:54 AM 08/05/2021 2:26 PM * Full Code Date Activated Date Inactivated Comments 08/04/2021 8:52 AM 08/04/2021 9:54 AM * Full Code Date Activated Date Inactivated Comments 07/02/2021 6:21 AM 07/02/2021 11:21 AM Care Teams Chalk Molding Machine Operator Relationship Specialty Start Date End Date Estefani Isaac MD [address] [phone] PCP - General Family Practice 07/26/21
--- NOTE | 2024-11-05 17:16 | W.ED.ABDPA2 ---
HPI - Abdominal Pain General: Chief Complaint: Abdominal Pain Stated Complaint: n/d, r side abd pain, chills Time Seen by Provider: 11/05/24 17:06 History of Present Illness: 49-year-old female with a history of chronic pain syndrome on 4 times daily 10 mg oxycodone therapy, obesity, hypothyroidism, anxiety and depression, hyperlipidemia who presents to the emergency room with right lower quadrant abdominal pain. She has had nausea but no vomiting. Loose stools. No dysuria. She has had chills all day today but no documented fever and she is afebrile on presentation. She had a history of a hysterectomy, vaginal prolapse repair, cholecystectomy in the past. Related Data Home Medications ?Medication ?Instructions ?Recorded ?Confirmed mineral oil 15 ml PO DAILY PRN 09/01/20 08/22/24 Previous Rx's ?Medication ?Instructions ?Recorded oxycodone 10 mg tablet 10 mg PO .5 times daily PRN pain 02/16/21 30 days #150 tabs cholecalciferol (vitamin D3) 125 See Rx Instructions .Route 03/22/21 mcg (5,000 unit) capsule .COMPLEX #90 caps naloxone 4 mg/actuation nasal spray 4 mg intranasal Q2M #2 ea 07/19/21 oxycodone 10 mg tablet 10 mg PO .5times aday PRN pain 30 09/20/21 days #150 tabs uavukbro-rowfirpxg-immbzugv 3.5 1 drp ophthalmic (eye) Q8H 7 days 06/17/22 mg/mL-10,000 unit/mL-0.1% eye #5 mL drops (Maxitrol) fluticasone propionate 50 2 spray intranasal DAILY #16 grams 03/13/23 mcg/actuation nasal spray,suspension (Flonase Allergy Relief) linaclotide 72 mcg capsule 72 mcg PO QAM #90 caps 03/13/23 (Linzess) tizanidine 4 mg tablet See Rx Instructions .Route 03/13/23 .COMPLEX #120 tabs escitalopram oxalate 20 mg tablet See Rx Instructions .Route 11/07/23 .COMPLEX #90 tabs diclofenac potassium 50 mg tablet See Rx Instructions .Route 12/12/23 .COMPLEX #60 tabs levothyroxine 50 mcg tablet See Rx Instructions .Route 01/15/24 .COMPLEX #7 tabs liothyronine 5 mcg tablet See Rx Instructions .Route 09/05/24 .COMPLEX #30 tabs liraglutide 0.6 mg/0.1 mL (18 mg/3 1.8 mg (0.3 mL) SUBCUT DAILY #27 mL 10/23/24 mL) subcutaneous pen injector ondansetron 8 mg disintegrating 8 mg PO Q6H #14 tabs 11/05/24 tablet promethazine 25 mg rectal 25 mg KS Q6H PRN nausea and 11/05/24 suppository vomiting #12 ea Allergies Allergy/AdvReac Type Severity Reaction Status Date / Time tramadol Allergy Mild ADR-Itching Verified 11/05/24 17:12 gabapentin AdvReac Mild palpitation Verified 11/05/24 17:12 s Review of Systems Narrative: Constitutional symptoms: Negative except as documented in HPI. Skin symptoms: Negative except as documented in HPI. Eye symptoms: Negative except as documented in HPI. ENMT symptoms: Negative except as documented in HPI. Respiratory symptoms: Negative except as documented in HPI. Cardiovascular symptoms: Negative except as documented in HPI. Gastrointestinal symptoms: Negative except as documented in HPI. Genitourinary symptoms: Negative except as documented in HPI. Musculoskeletal symptoms: Negative except as documented in HPI. Neurologic symptoms: Negative except as documented in HPI. Psychiatric symptoms: Negative except as documented in HPI. Endocrine symptoms: Negative except as documented in HPI. PFS ED PFSH: Medical History (Updated 11/05/24 @ 18:42 by Kath Cunningham MD) Plantar fasciitis of left foot surgery for this Encounter for long-term (current) use of NSAIDs Opioid contract exists Encounter for long-term use of opiate analgesic Back pain of lumbosacral region with sciatica Surgical History S/P cholecystectomy H/O vaginal surgery 08/19/2020- Posterior colporrhaphy, Sacrospinous ligament fixation, Single incision mid urethral sling and suburethral incision revision performed by Dr. Oconnell at [facility] History of hysterectomy H/O knee surgery Family History Mother Hyperlipidemia Thyroid disease Grandmother Hyperlipidemia maternal Thyroid disease maternal Sister Thyroid disease x2 Family/Other Breast cancer maternal side but unknown who Other CAD (coronary artery disease) Diabetes Hypertension Denies family history of Colon cancer Ovarian cancer Clotting disorder Bleeding disorder Uterine cancer Stroke Social History Smoking and tobacco/nicotine status: never used tobacco/nicotine Second hand smoke exposure: Yes Alcohol intake: never Substance/Drug Use: never Caregiver/support person: Yes (spouse) Lives independently: Yes Household members: spouse and none Marital status: service: No Current occupational status: employed Current occupation: [employer] Current gender identity: Female Special lexi needs: No Agree to transfusion: Yes Physical Exam Narrative: EXAM NARRATIVE: General: Alert, no acute distress. Skin: Warm, dry. Head: Normocephalic, atraumatic. Neck: Supple, trachea midline. Eye: Extraocular movements are intact. Ears, nose, mouth and throat: Tacky oral mucosa Cardiovascular: Regular, Normal peripheral perfusion. Respiratory: Lungs are clear to auscultation, respirations are non-labored, breath sounds are equal, Symmetrical chest wall expansion. Gastrointestinal: Soft, mild right lower quadrant tenderness to palpation,, Non distended Musculoskeletal: Normal ROM, no deformity. Neurological: Alert and oriented, No focal neurological deficit observed. Psychiatric: Cooperative, appropriate mood & affect. Course Vital Signs: Vital signs: Vital Signs Temperature 97.8 F 11/05/24 17:08 Pulse Rate 66 11/05/24 19:00 Respiratory Rate 18 11/05/24 17:08 Blood Pressure 111/66 11/05/24 19:00 Pulse Oximetry 97 11/05/24 19:00 Oxygen Delivery Me thod Room Air 11/05/24 18:43 MDM - Abdominal Pain Medical Decision Making Medical decision making: Differential diagnosis for this patient with right lower quadrant abdominal pain including but not limited to and based on the above HPI, review of systems and physical exam: Ureterolithiasis. Urinary tract infection. Appendicitis. colitis. small bowel obstruction. Crohn's flare. Pancreatitis. Cholelithiasis or cholecystitis. Hepatitis. Diverticulitis. Constipation. ovarian cyst. ovarian torsion Workup: Orders were placed to evaluate differential diagnosis based on the above differential, HPI and exam: Lab Review: Laboratory results were reviewed and interpreted by myself the emergency room physician. No leukocytosis. No anemia. No renal failure. Urinalysis is negative for infection but is quite concentrated which would indicate some dehydration. Flu COVID and RSV are negative. Lipase is negative. CRP is negative. CT of the abdomen pelvis with contrast: Diverticulosis without diverticulitis. Old surgical changes. She did have a pelvic floor surgery for vaginal prolapse. This was reviewed and interpreted by myself the emergency room physician. I also reviewed the radiology report. I reviewed the patient's medical record Reexamination: Patient still has some pain. We discussed additional pain medications here and she declines. No altered mental status. No increased work of breathing. Assessment and plan: Gastroenteritis Dehydration ? IV Dilaudid, IV Zofran and IV fluids. - Discharged home - Discussed plan with patient. Answered any questions. - Evaluation and treatment of this problem were appropriate in the emergency setting. Lab Data 11/05/24 17:22 11/05/24 17:22 Labs/Radiology: Radiology Impressions Abdomen/Pelvis CT 11/05/24 17:20 IMPRESSION: Sigmoid diverticulosis without definite significant acute inflammatory changes. Questionable mild circumferential thickening in the region of the pelvic floor, possibly related to surgery for prolapse. No definite significant inflammatory changes or kelsie abscess. Laboratory Results WBC 5.85 10^3/uL (3.29-11.43) 11/05/24 17:22 RBC 3.75 10^6/uL (3.85-5.65) L 11/05/24 17:22 Hgb 11.70 g/dL (11.27-16.99) 11/05/24 17:22 Hct 35.4 % (36-47) L 11/05/24 17:22 MCV 94.4 fl (85-98) 11/05/24 17:22 MCH 31.2 pg (27-33) 11/05/24 17:22 MCHC 33.1 g/dL (30-55) 11/05/24 17:22 RDW 12.5 % (12.1-15.1) 11/05/24 17:22 Plt Count 293 10^3/cmm (157-399) 11/05/24 17:22 MPV 9.8 fL (7.4-10.4) 11/05/24 17:22 Neut % (Auto) 42.9 % 11/05/24 17:22 Lymph % (Auto) 41.5 % 11/05/24 17:22 Grimes % (Auto) 10.6 % 11/05/24 17:22 Eos % (Auto) 3.9 % 11/05/24 17:22 Baso % (Auto) 0.9 % 11/05/24 17:22 Neut # (Auto) 2.51 10^3/uL (1.8-7.7) 11/05/24 17:22 Lymph # (Auto) 2.4 10^3/uL (0.8-4.8) 11/05/24 17:22 Grimes # (Auto) 0.6 10^3/uL (0.2-0.9) 11/05/24 17:22 Eos # (Auto) 0.2 10^3/uL (0.0-0.8) 11/05/24 17:22 Baso # (Auto) 0.1 10^3/uL (0.0-0.1) 11/05/24 17:22 Nucleated RBC % (auto) 0 % 11/05/24 17:22 Nucleated RBCs # 0.0 /100WBC 11/05/24 17:22 Sodium 136 mmol/L (136-145) 11/05/24 17:22 Potassium 4.0 mmol/L (3.5-5.1) 11/05/24 17:22 Chloride 100 mmol/L (98-107) 11/05/24 17:22 Carbon Dioxide 25 mmol/L (22-29) 11/05/24 17:22 Anion Gap 15.0 (5-19) 11/05/24 17:22 BUN 21 mg/dL (6-20) H 11/05/24 17:22 Creatinine 0.6 mg/dL (0.5-0.9) 11/05/24 17:22 GFR Calculation 106.3 mL/min (90-130) 11/05/24 17:22 Glucose 90 mg/dL (65-115) 11/05/24 17:22 Calculated Osmolality 285 mOsm/kg (285-295) 11/05/24 17:22 Lactic Acid 0.7 mmol/L (0.5-2.2) 11/05/24 17:22 Calcium 9.0 mg/dL (8.5-10.5) 11/05/24 17:22 Total Bilirubin 0.2 mg/dL (0.15-1.2) 11/05/24 17:22 AST 16 U/L (0-32) 11/05/24 17:22 ALT 19 U/L (0-33) 11/05/24 17:22 Alkaline Phosphatase 43 U/L (35-105) 11/05/24 17:22 C-Reactive Protein 3.0 mg/L (0.0-4.9) 11/05/24 17:22 Total Protein 7.1 g/dL (6.6-8.7) 11/05/24 17:22 Albumin 4.4 g/dL (3.5-5.2) 11/05/24 17:22 Globulin 2.7 g/dL (1.3-4.6) 11/05/24 17:22 Lipase 42 U/L (13-60) 11/05/24 17:22 Urine Color Yellow (Yellow) 11/05/24 18:00 Urine Appearance Clear (CLEAR) 11/05/24 18:00 Urine pH 7.0 (5-7) 11/05/24 18:00 Ur Specific Molino 1.024 (1.005-1.030) 11/05/24 18:00 Urine Protein Negative (Negative) 11/05/24 18:00 Urine Glucose (UA) Negative (Normal) 11/05/24 18:00 Urine Ketones Negative (Negative) 11/05/24 18:00 Urine Blood Negative (Negative) 11/05/24 18:00 Urine Nitrate Negative (Negative) 11/05/24 18:00 Urine Bilirubin Negative (Negative) 11/05/24 18:00 Urine Urobilinogen 0.2 mg/dL (Negative) 11/05/24 18:00 Ur Leukocyte Esterase Negative (Negative) 11/05/24 18:00 Urine RBC 0-2 /hpf (0-2) 11/05/24 18:00 Urine WBC 0-5 /hpf (0-5) 11/05/24 18:00 Ur Squamous Epith Cells 0-5 /hpf (0-5) 11/05/24 18:00 Amorphous Sediment Not Reportable 11/05/24 18:00 Urine Bacteria None seen /hpf (NONE) 11/05/24 18:00 Hyaline Casts 0-4 /lpf H 11/05/24 18:00 Influenza A (PCR) Negative (Negative) 11/05/24 17:25 Influenza Type B (PCR) Negative (Negative) 11/05/24 17:25 RSV (PCR) Negative (Negative) 11/05/24 17:25 SARS-CoV-2 (PCR) Negative (Negative) 11/05/24 17:25 All radiology interpretation(s) finalized by discharge Discharge Plan Discharge Patient Disposition: Home Clinical Impression: Gastroenteritis Condition: Stable Prescriptions: New promethazine 25 mg suppository 25 mg KS Q6H PRN (Reason: nausea and vomiting) Qty: 12 0RF ondansetron 8 mg tablet,disintegrating 8 mg PO Q6H Qty: 14 0RF Rx Instructions: Take 1/2-1 tab every 6 hours as needed for nausea and vomiting No Action mineral oil Oil 15 ml PO DAILY PRN oxycodone 10 mg tablet 10 mg PO .5 times daily PRN (Reason: pain) 30 Days Qty: 150 0RF Rx Instructions: fill on or after 02/17/21 neomycin-polymyxin B-dexameth [Maxitrol] 3.5mg/mL-10,000 unit/mL-0.1 % drops,suspension 1 drp ophthalmic (eye) Q8H 7 Days Qty: 5 0RF fluticasone propionate [Flonase Allergy Relief] 50 mcg/actuation spray,suspension 2 spray intranasal DAILY Qty: 16 12RF Rx Instructions: administer into each nostril Linzess 72 mcg capsule 72 mcg PO QAM Qty: 90 1RF tizanidine 4 mg tablet See Rx Instructions .ROUTE .COMPLEX Qty: 120 5RF Dose Instruction: TAKE 1 TABLET BY MOUTH FOUR TIMES DAILY FOR MUSCLE SPASMS Rx Instructions: TAKE 1 TABLET BY MOUTH FOUR TIMES DAILY FOR MUSCLE SPASMS cholecalciferol (vitamin D3) 125 mcg (5,000 unit) capsule See Rx Instructions .ROUTE .COMPLEX Qty: 90 1RF Dose Instruction: TAKE ONE CAPSULE BY MOUTH EVERY DAY Rx Instructions: TAKE ONE CAPSULE BY MOUTH EVERY DAY naloxone 4 mg/actuation spray,non-aerosol 4 mg intranasal Q2M Qty: 2 0RF Rx Instructions: spray 1 dose into ONE nostril; alternate nostrils w each dose until help arrives oxycodone 10 mg tablet 10 mg PO .5times aday PRN (Reason: pain) 30 Days Qty: 150 0RF escitalopram oxalate 20 mg tablet See Rx Instructions .ROUTE .COMPLEX Qty: 90 1RF Dose Instruction: TAKE 1 TABLET BY MOUTH DAILY Rx Instructions: TAKE 1 TABLET BY MOUTH DAILY diclofenac potassium 50 mg tablet See Rx Instructions .ROUTE .COMPLEX Qty: 60 0RF Dose Instruction: TAKE 1 TABLET BY MOUTH THREE TIMES DAILY FOR ARTHRITIS Rx Instructions: TAKE 1 TABLET BY MOUTH THREE TIMES DAILY FOR ARTHRITIS levothyroxine 50 mcg tablet See Rx Instructions .ROUTE .COMPLEX Qty: 7 0RF Dose Instruction: TAKE 1 TABLET BY MOUTH DAILY Rx Instructions: TAKE 1 TABLET BY MOUTH DAILY liothyronine 5 mcg tablet See Rx Instructions .ROUTE .COMPLEX Qty: 30 5RF Dose Instruction: TAKE 1 TABLET BY MOUTH DAILY Rx Instructions: TAKE 1 TABLET BY MOUTH DAILY liraglutide 0.6 mg/0.1 mL (18 mg/3 mL) pen injector 1.8 mg SUBCUT DAILY Qty: 27 1RF Discharge Orders: Discharge ED (Routine); Ordered 11/05/24 Ordered By: Kath Cunningham Referrals: Raúl Germain DO [Primary Care Provider, Family Practice] Discharge Diet: Advance as tolerated Discharge Activity: Increase activity as tolerated Patient Instructions: Gastroenteritis (ED), Opioid Safety, Pain Management, Patient Portal & [place] Instructions Activity Restrictions/Additional Instructions: Thank you for choosing [facility] for your healthcare needs today. You have been screened and evaluated and felt safe for discharge. Health conditions do change or evolve sometimes and as such it is important that you follow up with your Primary Doctor to be re checked, 3-5 days is a general good time frame for follow up. You are always welcome to return to the ED for re assessment if your symptoms are worsening or you have new concerns Print Language: Lithuanian Coding Level of Care Code ED Lead Mechanical Engineer for Guillermo Brannon
--- NOTE | 2024-11-05 17:20 | CTR_ITS ---
PROCEDURE INFORMATION: Exam: CT Abdomen And Pelvis With Contrast Exam date and time: 11/05/2024 5:36 PM Age: 49 years old Clinical indication: Abdominal pain; Localized; Right lower quadrant (rlq); Prior surgery; Surgery date: 6+ months; Surgery type: Gb, hysterectomy, rectal prolapse TECHNIQUE: Imaging protocol: Computed tomography of the abdomen and pelvis with contrast. Radiation optimization: All CT scans at this facility use at least one of these dose optimization techniques: automated exposure control; mA and/or kV adjustment per patient size (includes targeted exams where dose is matched to clinical indication); or iterative reconstruction. Contrast material: OMNIPAQUE 350; Contrast volume: 100 ml; Contrast route: INTRAVENOUS (IV); COMPARISON: ES surgery / GI images 08/19/2020 12:08 PM RADIATION DOSE METRICS: Total DLP (mGy-cm): 1331.6 FINDINGS: Liver: Fat the falciform. Cholecystectomy clips. Gallbladder and biliary ducts: See Liver finding. Pancreas: Normal. No ductal dilation. Spleen: Normal. No splenomegaly. Adrenal glands: Normal. No mass. Kidneys and ureters: Normal. No hydronephrosis. Stomach and bowel: Sigmoid diverticulosis without definite significant acute inflammatory changes. Postsurgical changes of the stomach. Questionable mild circumferential thickening in the region of the pelvic floor, possibly related to surgery for prolapse. No definite significant inflammatory changes or kelsie abscess. Appendix: No evidence of appendicitis. Intraperitoneal space: Unremarkable. No free air. No significant fluid collection. Vasculature: Unremarkable. No abdominal aortic aneurysm. Lymph nodes: Unremarkable. No enlarged lymph nodes. Urinary bladder: Unremarkable as visualized. Reproductive: Probable hysterectomy. Bones/joints: Unremarkable. No acute fracture. Soft tissues: Unremarkable. CT/CT abdomen pelvis w con* [id number] IMPRESSION: Sigmoid diverticulosis without definite significant acute inflammatory changes. Questionable mild circumferential thickening in the region of the pelvic floor, possibly related to surgery for prolapse. No definite significant inflammatory changes or kelsie abscess.
[2024-11-05] MEDS: ondansetron 2 mg/ML SDV 2 mL 4 MG IVP (17:23)
[2024-11-05] MEDS: iohexol 350 mg/mL 500 mL Btl (per mL) IV (17:40)
[2024-11-05 17:44] LABS: Hematocrit 35.4 % (36-47); Hemoglobin 11.70 g/dL (11.27-16.99); Mean Corpuscular HGB Conc 33.1 g/dL (30-55); Mean Corpuscular Hemoglobin 31.2 pg (27-33); Mean Corpuscular Volume 94.4 fl (85-98); Nucleated Red Blood Cells % 0 %; Platelet Count 293 10^3/cmm (157-399); Red Blood Count 3.75 10^6/uL (3.85-5.65); White Blood Count 5.85 10^3/uL (3.29-11.43)
[2024-11-05 17:55] LABS: Alanine Aminotransferase 19 U/L (0-33); Albumin Level 4.4 g/dL (3.5-5.2); Alkaline Phosphatase 43 U/L (35-105); Anion Gap 15.0 (5-19); Aspartate Amino Transferase 16 U/L (0-32); Blood Urea Nitrogen 21 mg/dL (6-20); Calcium 9.0 mg/dL (8.5-10.5); Carbon Dioxide 25 mmol/L (22-29); Chloride 100 mmol/L (98-107); Globulin 2.7 g/dL (1.3-4.6); Glucose 90 mg/dL (65-115); Lipase 42 U/L (13-60); Osmolality Calculated 285 mOsm/kg (285-295); Potassium 4.0 mmol/L (3.5-5.1); Sodium 136 mmol/L (136-145); Total Protein 7.1 g/dL (6.6-8.7)
[2024-11-05 17:56] VITALS: BP 122/86; PULSE 72; O2SAT 97
[2024-11-05 17:56] LABS: Lactic Sepsis W/Reflex 0.7 mmol/L (0.5-2.2)
--- NOTE | 2024-11-05 17:58 | PC.NURSE ---
pt aware of need for urine sample, pt voiced having just went prior to coming back to room, IVF running, pt voiced to try in a little bit.
[2024-11-05 18:22] LABS: Glucose Urine UA Negative (Normal); Nitrate Urine Negative (Negative); Specific Gravity, Urine 1.024 (1.005-1.030)
[2024-11-05 18:29] LABS: Respiratory Syncytial Virus Ce NEGATIVE (Negative); SARS-CoV-2 PCR NEGATIVE (Negative)
[2024-11-05 18:43] VITALS: PULSE 70; O2SAT 95
[2024-11-05 19:00] VITALS: BP 111/66; PULSE 66; O2SAT 97
== END 2024-11-05 19:01 | disposition home or self-care (01) ==
PROVIDERS: Emergency Provider Emergency Medicine; PCP Electrodiagnostic Medicine
DX: K52.9 Noninfective gastroenteritis and colitis, unspecified (principal); Z11.52 Encounter for screening for COVID-19; E78.5 Hyperlipidemia, unspecified
CPT/HCPCS: 36415; 74177; 80053; 81001; 83605; 83690; 85025; 86140; 87040; 87637; 96361; 96374; 99285; J2405; J7030

== ENCOUNTER 2024-11-27 20:17 | Emergency (ER) | payer OTHER, SELFPAY ==
[2024-11-27 20:21] VITALS: BP 100/70; PULSE 105; TEMP 37.1; O2SAT 98; BMI 39.0
--- OUTSIDE RECORDS SUMMARY | 2024-11-27 20:23 | XMS_ITS | Clinical Summary ---
Author Organization [facility] Address [address] [address] [place] [phone] Phone Care Team Providers Care Biology Department Chair Name Role Phone Estefani Isaac MD Primary Care Provider [phone] Allergies Active Allergy Reactions Criticality Noted Date [...] (#1) 2024 Medical Devices Implanted Type Area Record Librarian Device Identifier Shelf Expiration Date Model / Serial / Lot Seamguard Endogia 60 Blk [id number] - [id number] Implanted:Qty : 2 on 08/04/2021 by Olvin Claudio MD at [facility] Biological N/A: Stomach [employer] 03/16/2024 [id number] / / [id number] Seamguard Endogia 60 [id number] [id number] - [id number] Implanted:Qty : 3 on 08/04/2021 by Olvin Claudio MD at [facility] Biological N/A: Stomach [employer] 03/03/2024 [id number] / / [id number] [place] [address] RX [employer] (INTERNAL) [facility] [employer] RX [employer] Commercial Advance Directives For more information, please contact: [phone] * Full Code (Latest Code Status on File) Date Activated Date Inactivated Comments 08/04/2021 9:54 AM 08/05/2021 2:26 PM * Full Code Date Activated Date Inactivated Comments 08/04/2021 8:52 AM 08/04/2021 9:54 AM * Full Code Date Activated Date Inactivated Comments 07/02/2021 6:21 AM 07/02/2021 11:21 AM Care Teams Biology Department Chair Relationship Specialty Start Date End Date Estefani Isaac MD [address] [phone] PCP - General Family Practice 07/26/21
--- OUTSIDE RECORDS SUMMARY | 2024-11-27 20:23 | XMS_ITS | Data Portability ---
Author Organization [place] [facility], [facility] Address [address] [address] [place] [address] Assessment Encounter Date Assessment Date Assessment LastModified by Organization Details LastModified Time 11/11/2024 11/11/2024 Document scribed by Valentín Marin, Chief Information Security Officer. I was present during interview and exam. I have reviewed and agree with above documentation . Dr. Raúl Germain. Reviewed and discussed ER record, note, imaging. Declines Fluvax. [email or web address] Not available 11/11/2024 16:33:24 Plan of Treatment Reminders Order Date Submit Date Provider Last Modified By Organization Details Last Modified Time Details Appointments None recorded. Lab CMP, serum or plasma 2024 025 [facility], [address] [facility], [facility], [place], [address], 13:37:[address] [facility], [address] [facility], [facility], [place], [address], 14:46:48 thyrotropin , QN, serum or plasma [address] [facility], [address] [facility], [facility], [place], [address], 15:12:23 Referral None recorded. Procedures None recorded. Surgeries None recorded. Imaging None recorded. Medication Orders omeprazole 40 mg capsule,rohan hoang release [email or web address] [facility] #[id number], [address], [place], [place], [id number], 5 06:43:53 amoxicillin 875 mg tablet 2024 025 [facility] #91015, [address], [place], [place], [id number], 5 15:34:01 diclofenac sodium 50 mg tablet,danielle yed release 2023 024 [facility] #33164, [address], [place], [place], [id number], 4 17:04:43 escitalopra m 20 mg tablet 2023 024 [facility] #67927, [address], [place], [place], [id number], 4 17:04:44 levothyroxi ne 50 mcg tablet 2023 024 [facility] #57346, [address], [place], [place], [id number], 4 17:04:45 Patient TargetsNo targets recorded. Patient InstructionsNo instructions recorded. Reason for Referral None Reported. Results Created Date Observation Date Name Description Value Unit Range Abnormal Flag Note LastModifiedBy Organization Detail LastModifiedTime 04/27/1904/26/2024 CMP (FEMA LE) glucose 106.0 mg/dL 60.0-9 9.0 high Not Available [facility] [address] [facility], [place], [address], 04/26/2024 13:37:15 04/27/1904/26/2024 CMP (FEMA LE) BUN (blood urea nitrogen) 21.0 mg/dL 10.0-2 6.0 Not Available [facility] [address] [facility], [place], [address], 04/26/2024 13:37:15 04/27/19 25 04/26/2024 CMP (FEMA LE) creatinine (serum) 0.6 mg/dL 0.4-1. 5 Not Available [facility] [address] [facility], [place], [address], 04/26/2024 13:37:15 04/27/19 25 04/26/2024 CMP (FEMA LE) BUN/creatini ne ratio 35.00 ratio Not Available [facility] [address] [facility], [place], [address], 04/26/2024 13:37:15 04/27/19 25 04/26/2024 CMP (FEMA LE) eGFR calculated 112.9 Not Available [facility] [address] [facility], [place], [address], 04/26/2024 13:37:15 04/27/19 25 04/26/2024 CMP (FEMA LE) total protein 7.4 g/dL 6.0-8. 5 Not Available [facility] [address] [facility], [place], [address], 04/26/2024 13:37:15 04/27/19 25 04/26/2024 CMP (FEMA LE) total bilirubin 0.2 mg/dL 0.2-1. 3 Not Available [facility] [address] [facility], [place], [address], 04/26/2024 13:37:15 04/27/19 25 04/26/2024 CMP (FEMA LE) albumin 4.4 g/dL 3.5-5. 5 Not Available [facility] [address] [facility], [place], [address], 04/26/2024 13:37:15 04/27/19 25 04/26/2024 CMP (FEMA LE) globulin 3.0 calc Not Available [facility] [address] [facility], [place], [address], 04/26/2024 13:37:15 04/27/19 25 04/26/2024 CMP (FEMA LE) AST (SGOT) 27.0 U/L 0.0-46 .0 Not Available [facility] [address] [facility], [place], [address], 04/26/2024 13:37:15 04/27/19 25 04/26/2024 CMP (FEMA LE) altv (SGPT) 32.0 U/L 13.0-6 9.0 normal Not Available [facility] [address] [facility], [place], [address], 04/26/2024 13:37:15 04/27/19 25 04/26/2024 CMP (FEMA LE) A/G ratio 1.5 ratio Not Available [facility] [address] [facility], [place], [address], 04/26/2024 13:37:15 04/27/19 25 04/26/2024 CMP (FEMA LE) ALP phos 45.0 U/L 30.0-1 40.0 normal Not Available [facility] [address] [facility], [place], [address], 04/26/2024 13:37:15 04/27/19 25 04/26/2024 CMP (FEMA LE) calcium 9.2 mg/dL 8.4-10 .5 Not Available [facility] [address] [facility], [place], [address], 04/26/2024 13:37:15 04/27/19 25 04/26/2024 CMP (FEMA LE) sodium 140.0 mmol/ L 136.0- 145.0 Not Available [facility] [address] [place] [facility], [place], [address], 04/26/2024 13:37:15 04/27/1904/26/2024 CMP (FEMA LE) potassium 4.1 mmol/ L 3.5-5. 1 Not Available [facility] [address] [facility], [place], [address], 04/26/2024 13:37:15 04/27/1904/26/2024 CMP (FEMA LE) chloride 105.0 mmol/ L 98.0-1 10.0 normal Not Available [facility] [address] [facility], [place], [address], 04/26/2024 13:37:15 04/27/19 25 04/26/2024 CMP (FEMA LE) C02 27.0 mmol/ L 22.0-3 1.0 Not Available [facility] [address] [facility], [place], [address], 04/26/2024 13:37:15 04/27/1904/26/2024 CMP (FEMA LE) anion gap 8.0 calc Not Available [facility] [address] [facility], [place], [address], 04/26/2024 13:37:15 04/27/1904/26/2024 CMP (FEMA LE) osmolality 292.3 calc Not Available [facility] [address] [facility], [place], [address], 04/26/2024 13:37:15 04/27/19 25 04/26/2024 CBC WBC 5.0 x10 4.0-10 .5 Not Available [facility] [address] [facility], [place], [address], 04/26/2024 14:46:48 04/27/19 25 04/26/2024 CBC RBC 4.22 x10 3.50-5 .50 Not Available [facility] [address], [place], [address], 04/26/2024 14:46:48 04/27/19 25 04/26/2024 CBC HGB 12.7 g/dL 12.0-1 6.0 Not Available [facility] [address] [facility] [place] [address], [place], [address], 04/26/2024 14:46:48 04/27/19 25 04/26/2024 CBC HCT 39.8 % 37.0-4 7.0 Not Available [facility] [address] [facility], [place], [address], 04/26/2024 14:46:48 04/27/19 25 04/26/2024 CBC MCV 94.3 fL 80.0-9 9.9 Not Available [facility] [address] [facility], [place], [address], 04/26/2024 14:46:48 04/27/19 25 04/26/2024 CBC MCH 30.0 pg 27.0-3 2.0 Not Available [facility] [address] [facility], [place], [address], 04/26/2024 14:46:48 04/27/19 25 04/26/2024 CBC MCHC 31.8 g/dL 32.0-3 6.0 low Not Available [facility] [address] [facility], [place], [address], 04/26/2024 14:46:48 04/27/19 25 04/26/2024 CBC RDW 13.2 % 11.5-1 4.5 Not Available [facility] [address] [facility], [place], [address], 04/26/2024 14:46:48 04/27/19 25 04/26/2024 CBC plt 263.2 x10 140.0- 451.0 Not Available [facility] [address] [facility], [place], [address], 04/26/2024 14:46:48 04/27/19 25 04/26/2024 CBC lymphocytes % 33.0 % 20.0-5 0.0 Not Available [facility] [address] [facility], [place], [address], 04/26/2024 14:46:48 04/27/19 25 04/26/2024 CBC granulcytes % 54.6 % 30.0-7 0.0 Not Available [facility] [address] [facility], [place], [address], 04/26/2024 14:46:48 04/27/19 25 04/26/2024 CBC monocytes % 8.0 % 2.0-16 .0 Not Available [facility] [address] [facility], [place], [address], 04/26/2024 14:46:48 04/27/19 25 04/26/2024 CBC granulcytes# 2.7 x10 Not Thi ilable [facility] [address] [facility], [place], [address], 04/26/2024 14:46:48 04/27/19 25 04/26/2024 CBC lymphocytes # 1.7 x10 Not Available [facility] [address] [facility], [place], [address], 04/26/2024 14:46:48 04/27/19 25 04/26/2024 CBC monocytes # 0.4 x10 Not Avai carlosle [facility] [address] [facility] [address], [place], [address], 04/26/2024 14:46:48 04/27/19 25 04/26/2024 TSH TSH 1.51 uIU/m L 0.49-3 .82 Not Available [facility] [address] [facility] [address], [place], [address], 04/26/2024 15:12:23 11/12/19 25 11/05/2024 CT, abdom en + pelvi s, w/ contr ast [facility] [address] [place] [address] CT Scan Report Signed Patien t: Ariel chambers,Bright kareem Ally Unit #: [id number] : [id number] Age/Se x: 49 / F ADM Date: Loc: ER Room/B ed: Attend ing Dr: Mariusz peterson [facility] er/Ord ering MD: Kath Cunningham MD Date of Servic e: Proced ure(s) : CT abdome n pelvis w con* [id number] Access ion Number (s): [id number] Report Number : [id number] PROCED URE INFORM ATION: Exam: CT Abdome n And Pelvis With Contra st Exam date and time: 025 5:36 PM Age: 49 years old Clinic al indica tion: Abdomi nal pain; Locali zed; Right lower quadra nt (rlq); Prior surger y; Surger y date: 6+ months ; Surger y type: Gb, hyster ectomy , rectal prolap se TECHNI QUE: Imagin g protoc ol: Comput ed tomogr aphy of the abdome n and pelvis with contra st. Radiat ion optimi zation : All CT scans at this facili ty use at least one of these dose optimi zation techni ques: automa mary exposu re contro l; mA and/or kV adjust ment per patien t size (inclu bari target ed exams where dose is matche d to clinic al indica tion); or iterat rosa recons tructi on. Contra st materi al: OMNIPA QUE 350; Contra st volume : 100 ml; Contra st route: INTRAV ENOUS (IV); COMPAR RASHAUN: ES surger y / GI images 08/20/19 12:08 PM RADIAT ION DOSE METRIC S: Total DLP (mGy-c m): 1331.6 FINDIN GS: Liver: Fat the falcif orm. Cholec ystect edmond clips. Gallbl adder and biliar y ducts: See Liver findin g. Pancre as: Normal . No ductal dilati on. Spleen : Normal . No spleno megaly . Adrena l glands : Normal . No mass. Kidney s and ureter s: Normal . No hydron ephros is. Stomac h and bowel: Sigmoi d divert iculos is withou t defini te signif icant acute inflam matory change s. Postsu rgical change s of the stomac h. Questi onable mild circum ferent ial thicke martha in the region of the pelvic floor, possib ly relate d to surger y for prolap se. No defini te signif icant inflam matory change s or kelsie absces s. Append ix: No eviden ce of append icitis . Intrap eriton eal space: Unrema rkable . No free air. No signif icant fluid collec tion. Vascul ature: Unrema rkable . No abdomi nal aortic aneury sm. Lymph nodes: Unrema rkable . No enlarg ed lymph nodes. Urinar y bladde r: Unrema rkable as visual ized. Reprod uctive : Probab le hyster ectomy . Bones/ joints : Unrema rkable . No acute fractu re. Soft tissue s: Unrema rkable . ACCESS ION #: [id number] [id number] CT/CT abdome n pelvis w con* [id number] IMPRES CHRISTINE: Sigmoi d divert iculos is withou t defini te signif icant acute inflam matory change s. Questi onable mild circum ferent ial thicke martha in the region of the pelvic floor, possib ly relate d to surger y for prolap se. No defini te signif icant inflam matory change s or kelsie absces s. Dictat ed By: Leobardo Acuña MD Signed By: Leobardo Acuña MD Signed Date/T nicolette: 1807 DD/DT: 1736 [email or web address] Not Available 2024 16:28:15 11/13/1911/01/2024 MRI, lumba r spine , w/o contr ast No observ ation record ed. [address] [place], [address], 11/20/2024 12:04:14 Result Notes Documentation Provider Name and Address Organization Details Recorded Time Ct, Abdomen + Pelvis, W/ Contrast : [facility] [address] [place] [address] [address] Scan Report Signed Patient: Cassia Orellana Unit #: [id number] : 1975 Age/Sex: 49 / F ADM Date: 11/05/24 Loc: ER Room/Bed: Attending Dr: Ordering Provider/Ordering MD: Kath Cunningham MD Date of Service: 11/05/24 Procedure(s): CT abdomen pelvis w con* [id number] Accession Number(s): [id number] Report Number: [id number] PROCEDURE INFORMATION: Exam: CT Abdomen And Pelvis With Contrast Exam date and time: 11/05/2024 5:36 PM Age: 49 years old Clinical indication: Abdominal pain; Localized; Right lower quadrant (rlq); Prior surgery; Surgery date: 6+ months; Surgery type: Gb, hysterectomy, rectal prolapse TECHNIQUE: Imaging protocol: Computed tomography of the abdomen and pelvis with contrast. Radiation optimization: All CT scans at this facility use at least one of these dose optimization techniques: automated exposure control; mA and/or kV adjustment per patient size (includes targeted exams where dose is matched to clinical indication); or iterative reconstruction. Contrast material: OMNIPAQUE 350; Contrast volume: 100 ml; Contrast route: INTRAVENOUS (IV); COMPARISON: ES surgery / GI images 08/19/2020 12:08 PM RADIATION DOSE METRICS: Total DLP (mGy-cm): 1331.6 FINDINGS: Liver: Fat the falciform. Cholecystectomy clips. Gallbladder and biliary ducts: See Liver finding. Pancreas: Normal. No ductal dilation. Spleen: Normal. No splenomegaly. Adrenal glands: Normal. No mass. Kidneys and ureters: Normal. No hydronephrosis. Stomach and bowel: Sigmoid diverticulosis without definite significant acute inflammatory changes. Postsurgical changes of the stomach. Questionable mild circumferential thickening in the region of the pelvic floor, possibly related to surgery for prolapse. No definite significant inflammatory changes or kelsie abscess. Appendix: No evidence of appendicitis. Intraperitoneal space: Unremarkable. No free air. No significant fluid collection. Vasculature: Unremarkable. No abdominal aortic aneurysm. Lymph nodes: Unremarkable. No enlarged lymph nodes. Urinary bladder: Unremarkable as visualized. Reproductive: Probable hysterectomy. Bones/joints: Unremarkable. No acute fracture. Soft tissues: Unremarkable. CT/CT abdomen pelvis w con* [id number] IMPRESSION: Sigmoid diverticulosis without definite significant acute inflammatory changes. Questionable mild circumferential thickening in the region of the pelvic floor, possibly related to surgery for prolapse. No definite significant inflammatory changes or kelsie abscess. Dictated By: Jose M Hagan MD Signed By: Jose M Hagan MD Signed Date/Time: 11/05/241806 DD/ 1736 Valentín pelaez [facility] 11/11/2024 16:28:15 Problems Name Problem SNOMED Code Status Onset Date Resolution Date Notes Provider Name and Address Organization Details Recorded Time Hypothyroidism 44602662 Active 2023 RIVERA pelaez [facility] 5 11:31:30 Depressive disorder 55041571 Active 2023 Lakesha pelaez [facility] 4 15:50:31 Sciatic neuropathy 24257745 Active 2023 Lakesha pelaez [facility] 4 15:50:52 Osteoarthritis 594624842 Active 2023 Lakesha pelaez [facility] 4 15:51:15 Morbid obesity 066815888 Active 2023 RIVERA pelaez [facility] 5 11:31:36 Pain of sacroiliac joint 066235118 Active 2023 [address], [address], [facility], L[facility] 4 11:35:33 Seasonal allergic rhinitis 143355360 Active 2024 Raúl [address], [address], [facility], [place] 5 12:15:26 Cervical lymphadenopath y 843074882 Active [address], [address], [facility], [place] 5 12:15:31 Hyperglycemia 77522827 Active 2024 Raúl [address], [address], [facility], [facility] 5 08:37:49 Problem Notes None recorded. Procedures Surgical History Date Name Laterality Status Provider Name and Address Organization Details Recorded Time arthroscopy of left knee joint completed [place]ha Macario [facility] 01/09/2024 15:54:29 laparoscopic sleeve gastrectomy completed Lakesha Macario [facility] 01/09/2024 15:54:48 partial hysterectomy completed RIVERA NAGEL [facility] sara [facility], L[facility]LR[facility] 04/26/2024 11:28:25 Imaging Results None recorded. Procedure Notes None recorded. Medical Equipment None Reported. Allergies Allergen ID Allergen Name Allergen Category Reaction Reaction Severity Criticality Documentation Date Start Date Code Code System Note Provider Name and Address Organization Details Recorded Time 47581 tramadol medicatio n itching severe Not available 01/09/2024 63141 RxNorm [place] pelaez [facility] 4 15:47:36 77646 gabapenti n medicatio n palpitati ons moderate Not available 01/09/2024 77328 RxNorm [place] pelaez [facility] 4 15:47:55 Medications Name Sig Start Date Stop Date Status Note LastModified by Organization Details LastModified Time tizanidine 4 mg tablet TAKE 1 TABLET BY MOUTH EVERY 4 HOURS NEEDED FOR SPASM. MAX 5 PER DAY 28 DAYS active Not Available Not Available No t Available omeprazole 40 mg capsule,del ayed release TAKE 1 CAPSULE BY MOUTH EVERY DAY FOR STOMACH ACID OR REFLUX active Not Available Not Available No t Available liothyronin e 5 mcg tablet TAKE 1 TABLET BY MOUTH DAILY active Not Available Not Available No t Available ondansetron 8 mg disintegrat ing tablet DISSOLVE 1/2-1 TABLET ON THE TONGUE EVERY 6 HOURS NEEDED FOR FOR NAUSEA AND VOMITING active Not Available Not Available No t Available oxycodone 15 mg tablet TAKE 1 TABLET BY MOUTH EVERY 4 HOURS NEEDED FOR PAIN MAX OF 4 TABLETS PER DAY HOLD WITHIN 4 HOURS OF PLANNED SLEEP FOR 28 DAYS active Not Available Not Available No t Available prednisone 10 mg tablets in a dose pack FOLLOW PACKAGE DIRECTION S 11/11 completed Not Available Not Available Not Available amoxicillin 875 mg tablet TAKE 1 TABLET BY MOUTH TWICE DAILY FOR 10 DAYS 11/11 completed Not Available Not Available Not Available levothyroxi ne 50 mcg tablet TAKE 1 TABLET BY MOUTH EVERY DAY FOR THYROID active Not Available Not Available No t Available diclofenac potassium 50 mg tablet TAKE 1 TABLET BY MOUTH THREE TIMES DAILY FOR ARTHRITIS 04/26 completed Not Available Not Available Not Available diclofenac sodium 50 mg tablet,danielle yed release Take 1 tablet 3 times a day by oral route for 30 days, for arthritis /pain. 2024 active Not Available Not Available Not Avai lable Promethegan 25 mg rectal suppository UNWRAP AND INSERT 1 SUPPOSITO RY RECTALLY EVERY 6 HOURS NEEDED FOR NAUSEA OR VOMITING active Not Available Not Available No t Available azelastine 137 mcg (0.1 %) nasal spray ADMINISTE R 2 SPRAYS IN EACH NOSTRIL TWICE A DAY active Not Available Not Available No t Available fluticasone propionate 50 mcg/actuati on nasal spray,suspe nsion SHAKE LIQUID AND USE 2 SPRAYS IN EACH NOSTRIL DAILY 04/26 completed Not Available Not Available Not Available escitalopra m 20 mg tablet TAKE 1 TABLET BY MOUTH EVERY DAY FOR MOOD active Not Available Not Available No t Available oxycodone 10 mg tablet TAKE 1 TABLET BY MOUTH EVERY 6 HOURS NEEDED. NOT TO EXCEED 4 PER DAY active Not Available Not Available No t Available Vit 3 1,000 mg daily active Not Available Not Available No t Available Women's Daily Formula one daily active Not Available Not Available No t Available Body, Hair, Skin and Nails one daily active Not Available Not Available No t Available liraglutide 0.6 mg/0.1 mL (18 mg/3 mL) subcutaneou s pen injector ADMINISTE R 1.8 MG UNDER THE SKIN DAILY active Not Available Not Available No t Available B12 1,000 mg daily active Not Available Not Available No t Available Vitals Date Recorded Body height Body mass index (BMI) Body weight Oxygen saturation Oxygen saturation in Arterial blood by Pulse oximetry Heart rate Respiratory rate Systolic And Diastolic Provider Name and Address Organization Details Last Updated DateTime 5 180.34 cm 40.8 kg/m2 115211. 07 g 97 % 97 % 92 /min 18 /min 122/70 mm[Hg] RIVERA NAGEL [facility] 5 11:32:41 Date Recorded Body height Body mass index (BMI) Body weight Oxygen saturation Oxygen saturation in Arterial blood by Pulse oximetry Heart rate Respiratory rate Systolic And Diastolic Provider Name and Address Organization Details Last Updated DateTime 5 180.34 cm 40.2 kg/m2 670396. 6 g 98 % 98 % 75 /min 18 /min 120/74 mm[Hg] Lakesha Macario [facility] 5 15:47:52 Date Recorded Body weight Body mass index (BMI) Body height Oxygen saturation Oxygen saturation in Arterial blood by Pulse oximetry Heart rate Respiratory rate Systolic And Diastolic Provider Name and Address Organization Details Last Updated DateTime 4 837000. 32 g 40.7 kg/m2 180.34 cm 98 % 98 % 84 /min 18 /min 118/70 mm[Hg] Lakesha Macario [facility] 15:58:21 Social History Question Answer Notes LastModified by [employer] Details LastModified Time Tobacco Smoking Status Never Smoker Lakesha pelaez [facility] 01/09/2024 15:53:33 What Is Your Level Of Caffeine Consumption? Moderate [email or web address] Information not available 01/09/2024 What Was The Date Of Your Most Recent Tobacco Screening? 01/09/2024 [email or web address] Information not available 01/09/2024 Sex: Unknown Functional Status Question Answer Note LastModified by Organizat ion Details LastModified Time Do you use any illicit or recreational drugs? No [email or web address] Information not available 01/09/2024 Do you or have you ever used any other forms of tobacco or nicotine? No [email or web address] Information not available 01/09/2024 What is your level of alcohol consumption? None [email or web address] Information not available 01/09/2024 Do you or have you ever used any nicotine-free cigarettes, vape, or chewing tobacco? No Information not available 01/09/2024 Mental Status None recorded. Family History Relationship Description Onset Age of this Age Resolved Age Notes LastModified by Organization Details LastModified Time Mother Diabetes mellitus Not available 2023 15:51:39 Mother Hypertensive disorder Not available 2023 15:51:52 Maternal Grandmother Hypertensive disorder Not available 2023 15:51:52 Maternal Grandmother Diabetes mellitus [email or web address] Not available 2023 15:52:00 Paternal Grandmother Malignant neoplasm of liver [email or web address] Not available 2023 15:52:19 Paternal Grandfather Heart disease [email or web address] Not available 2023 15:52:50 Medical History No medical history recorded. Gynecological HistoryNo gynecological history recorded. Obstetrics History GPAL:G 0 P 0 0 0 0 Past Encounters Encounter ID Performer Location Encounter Start Date Encounter Closed Date Diagnosis/Indication Diagnosis SNOMED-CT Code Diagnosis ICD10 Code Diagnosis IMO Codes Diagnosis Note [id number] Raúl Germain DO [facility] ([facility]) [address] [place] [phone] 01/09/2024 15:41:22 02/04/2024 21:44:23 Depressive disorder 18522060 F32.A continue lexapro. counseled on coping. counseling . . Osteoarthritis 452209379 M19.90 chronic mutijoint. counseled on exercise, weight loss, low inflammati on diet. continue prin diclofenac Hypothyroidism [id number] E03.9 Stable. Continue current dosage of Levothyrox ine. We will repeat Thyroid labs next appt. Morbid obesity [id number] E66.01 Z68.41 I counseled pt on obesity. We discussed risks and ways to loose weight. Pt will work on diet, exercise. Screening for malignant neoplasm of colon [id number] Z12.11 counseled on colon cancer and screening options. she will consider colonoscop y next year. Pain of sa croiliac joint [id number] M53.3 chronic, severe, followed by pain management . [id number] Raúl Germain DO [facility] ([facility]) [address] [place] [phone] 04/26/2024 10:33:50 04/26/2024 14:11:33 Cervical lymphadenopathy [id number] R59.0 right side, below ear. start abx, labs today. counseled Hypothyroidism 11261125 E03.9 Stable. Continue current dosage of Levothyrox ine. We will repeat Thyroid labs today Morbid obesity 361640390 E66.01 Z68.41 I counseled pt on obesity. We discussed risks and ways to loose weight. Pt will work on diet, exercise. Seasonal a llergic rhinitis [id number] J30.2 flonase not helping will change to nasal antihistam ine, sample today. counseled [id number] Raúl Germain DO [facility] ([facility]) [address] [place] [phone] 11/11/2024 15:18:58 11/14/2024 15:55:28 Diverticular disease [id number] K57.90 12747 11/11/24: Per CT abd/pelvis on 11/05/24 in ER. Sigmoid colon. Counseled on diagnosis, treatment options including medication s and possible side effects.Co unseled on amaury flores Colonoscop y, pt to let us know when she wants to schedule. Gastroenteritis 03000354 K52.9 80251 11/11/24: Counseled start Omeprazole 40mg daily for at least 6 weeks. Counseled on diagnosis, treatment options including medication s and possible side effects. Health Concerns Section Related Observation LastModified by Organization Detai ls LastModified Time None Recorded Concern Status LastModified by Organization Details LastModified Time None Recorded Advance Directives Directive None Recorded Payers Insurance Date Sequence Insurance Name Policy Number Policy Morocho Covered Member ID Morocho Member ID Guarantor Name 11/14/2024 1 [facility] [id number] Cassia Orellana [id number] Cassia Orellana Notes Date Note Type Note Provider Name and Address Organization Details Recorded Time 01/09/2024 text/html Annual WellnessReported by PatientSocial/Behavior al HistoryFor diet and nutrition, patient reportshealthy diet. For fracture risk, patient reportsno history of fractures,no recent explained fracture,no sudden unexplained fractures, andno previous musculoskeletal injuries. For physical activity, patient reportsexercises on a regular basis,recent increase in physical activity, andgood physical condition. For additional lifestyle factors, patient reportsno tobacco useandno alcohol intake.Mental Status:For depression risk, patient reportsnever feels sad, empty, or tearful,no loss of interest in activities,no significant changes in weight,no sleep disturbances or insomnia,no agitation,no loss of energy,no feelings of worthlessness or guilt,no thoughts of suicide,no history of depression, andno history of mood disorders.Functional AbilityFor hearing, patient reportsno loss of hearing. For vision, patient reportsno vision problems(floaters in right eye).ROS as noted in the HPI pt presents to establish care, previous PCP Estefani Isaac after Dr. Rolon retired no c/o or concerns voiced today hx: osteoarthritis, depression, ismael hypothyroidism, sciatic nerve pain previous surgeries: arthroscopy of left knee twice for torn meniscus and then for torn aclgastric sleeve 2021, partial hysterectomy she sees pain management for sciatic nerve pain and med refills of oxycodone 15mg daily. Pt works at [employer], has been there 13 years. last mammo 2 years, normal.never had colon cancer screening. fhx: DM-- Mother and maternal grandmother, HTN - maternal grandmother and mother, Heart disease -paternal grandfather, Liver cancer- paternal grandmother No recent hospitalizations or ER visits Raúl Germain DO [address] [place] [address], [phone], [facility], [place]. 02/04/2024 11:35:41 04/26/2024 text/html ROS as noted in the HPI 4mth f/u, chronic back pain, depression mood stable. did not have labs prior to mariam, would like labs ordered right ear pain, started 2 days ago. radiating to right jaw nasal spray, states she would like something else sent in. constant runny nose Raúl Germain DO [address] [place] [address], [phone], [facility], [place]. 04/26/2024 12:15:46 11/11/2024 text/html ROS as noted in the HPI Pt presents for ER f/u for diverticulosis She went to the ER d/t she thought she was having an appendicitis and tx for diverticulosis or gastritis She looked at her results on the portal and found the dx of the diverticulosis of sigmoid colonShe was given rx for Zofran tabs and Phenergan suppositoriesShe is trying to follow diet with no seeds or nuts She reports her pain is ok now.Denies any n/v, fever, chills now. No prior Colonoscopy. She is wanting to find out results of her MRI on her back that was done on 11/01/24 at [facility] we are requesting records today Raúl Germain DO [address] [place] [address], [phone], [facility], [place]. 11/12/2024 18:44:23 OBGyn Episode No OBEpisode recorded.
--- OUTSIDE RECORDS SUMMARY | 2024-11-27 20:24 | XMS_ITS | Patient Health Record ---
Author Organization [facility] Address [address] [place] [address] Care Team Providers Care Route Sales Person Name Role Phone Marcellus Raúl Primary Care Provider Unavail able Vangie Hayden Unavailable [phone] Higinio Bautista Unavailable Unavailable Rainer Sky Unavailable [phone] Maci Rosa Unavailable Allergies Allergen (clinical drug ingredient) Drug/Non Drug Allergy documented on EMR Reaction Allergy Type Onset Date Status gabapentin Gabapentin Unknown Drug Allergy Activ e tramadol traMADol Unknown Drug Allergy Active Results Component Value Reference Range Flag Notes Tox Results Reviewed date:10/30/2024 02:00:42 PM Interpretation: Performing Lab: Notes/Report: Schedule Confirmation (Not y et reviewed by provider) Interpretation: Performing Lab: Notes/Report: MRI Lumbar Spine w/o Cont Urine Drug Screen (cup read) - [id number] Reviewed date:10/23/2024 01:21:15 PM Interpretation: Performing Lab: Notes/Report: OXY + Schedule Confirmation (Not y et reviewed by provider) Interpretation: Performing Lab: Notes/Report: MRI Lumbar Spine w/o Cont MRI Lumbar Spine w/o Cont-[id number] (Not yet reviewed by provider) Interpretation: Performing Lab: Notes/Report: [id number] Urine Confirmation Panel (in strument) - [id number] Reviewed date:10/30/2024 01:12:51 PM Interpretation: Performing Lab: [...] by the U.S. Food and Drug Administration. Schedule Confirmation (Not y et reviewed by provider) Interpretation: Performing Lab: Notes/Report: MRI Lumbar Spine w/o Cont IMH MRI Lumbar Spine w/o Con t-[id number] (Not yet reviewed by provider) Interpretation: Performing Lab: Notes/Report: See Below For Report MRI Lumbar Spine w/o Cont Enedelia Woods 09/19/2024 06:44:04 AM CDT > No PA Required [id number] Read See Below For Report Reason For Referral Reason eval and treat Diagnosis 1 Vertebrogenic low ba ck pain (M54.51) Referring Provider First Name Higinio Referring Provider Last Name Michele Referring Provider Speciality Pain Medic ine Referred Organization [facility] Referred Provider Rainer Sky Referred Address [address] [place] [phone], Referred Provider Specialty Intervention al Pain Medicine [...] Status Risk Notes Problem Chronic pain syndrome (810730838) Chronic pain syndrome (G89.4) Active confirmed Problem Lumbosacral spondylosis without myelopathy (09075235) Other spondylosis with radiculopathy, lumbar region (M47.26) Active confirmed Problem Lumbar radiculopathy (261654696) Lumbar radiculopathy (M54.16) Active confirmed Problem Lumbar spondylosis (216721252) Lumbar spondylosis (M47.816) Active confirmed Problem Obesity (930566567) Obesity (E66.9) Active confirmed Problem Abnormal gait (78721593) Abnormality of gait and mobility (R26.9) Active confirmed Vital Signs Height-cm 180.34 cm 10/23/2024 Weight-kg 131.09 kg 10/23/2024 Height 71.00 in 10/23/2024 Weight 289 lbs 10/23/2024 BMI 40.3 kg/m2 10/23/2024 Encounters Encounter Location Date Provider Diagnosis [facility] [address] [phone] 09/18/2024 Rainer Sky Chronic pain syndrom e G89.4 ; Other spondylosis with radiculopathy, lumbar region M47.26 ; Abnormality of gait and mobility R26.9 ; Obesity E66.9 ; senior living (current) use of opiate analgesic Z79.891 ; Lumbar radiculopathy M54.16 and Lumbar spondylosis M47.816 [facility] [address] [phone] 10/23/2024 Rainer Sky Chronic pain syndrom e G89.4 ; Other spondylosis with radiculopathy, lumbar region M47.26 ; Abnormality of gait and mobility R26.9 ; Right knee pain, unspecified chronicity M25.561 ; Obesity E66.9 ; 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 Rainer Sky. I, Dr. Rainer Sky, personally performed the services described in this documentation, as scribed by Lainey Dempsey, and it is both accurate and complete. 10/23/2024 Other Lainey Huntley, am scribing for Dr. Rainer Sky. I, Dr. Rainer Sky, personally performed the services described in this documentation, as scribed by Lainey Dempsey, and it is both accurate and complete. Plan Of Treatment Pending Test Test Name Order Date MRI Lumbar Spine w/o Cont-[id number] 09/19/19 Schedule Confirmation 11/01/2024 Schedule Confirmation 11/01/2024 Schedule Confirmation 11/01/2024 [facility] MRI Lumbar Spine w/o Cont-[id number] 10/14 Next Appt Details Provider Name:Vangie haas, 11/28/2024 02:20:00 PM, [address] [place], [address], Insurance Providers Payer Name Payer Address Payer Phone Subscriber Number Group Number Insured Name Patient Relationship to Insured Coverage Start Date Coverage End Date [facility] [address] [address] [place] [address] [phone] [id number] JUNG ORELLANA Self - patient is the insured Medical (General) History Medical History History ICD Code Problem:Arthralgia of the lower leg (keon natarajan) , Status :: Active Depression Arthritis constipation Thyroid disease Surgical History Surgery Date(Month/Year) hysterectomy gall bladder removal arthroscopic knee surgery gastric bypass cataract removal
--- NOTE | 2024-11-27 20:27 | ECG_ITS ---
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1975 Requested By: Delmis Wood Order Number: [id number] Reading MD: Measurements Intervals [place] Rate: 108 P: 44 VT: 191 QRS: 66 QRSD: 100 T: 59 QT: 359 QTc: 481 Interpretive Statements SINUS TACHYCARDIA PROBABLE INFERIOR MYOCARDIAL INFARCTION , OF INDETERMINATE AGE [35 ms Q WAVE IN II/aVF] PROBABLE ANTEROLATERAL MYOCARDIAL INFARCTION , OF INDETERMINATE AGE [35 ms Q WAVE IN I/aVL/V3-V6] INTERPRETATION BASED ON A DEFAULT AGE OF 40 YEARS No previous ECG available for comparison [email or web address]
--- NOTE | 2024-11-27 21:51 | CTR_ITS ---
PROCEDURE INFORMATION: Exam: CT Head Without Contrast Exam date and time: 11/27/2024 10:34 PM Age: 49 years old Clinical indication: Syncope and collapse; Additional info: Syncope, seizure TECHNIQUE: Imaging protocol: Computed tomography of the head without contrast. Radiation optimization: All CT scans at this facility use at least one of these dose optimization techniques: automated exposure control; mA and/or kV adjustment per patient size (includes targeted exams where dose is matched to clinical indication); or iterative reconstruction. COMPARISON: No relevant prior studies available. RADIATION DOSE METRICS: Total DLP (mGy-cm): 1191.14 FINDINGS: Brain: Calcification along the right posterior temporal subcortical white matter, dystrophic. No recent infarct, intracranial bleed or mass effect. Cerebral ventricles: No ventriculomegaly. Pituitary gland and sella: There is a normal empty pituitary sella. Paranasal sinuses: Visualized sinuses are unremarkable. No fluid levels. Mastoid air cells: Visualized mastoid air cells are well aerated. Orbital cavities: Post bilateral cataract surgery. Bones: Unremarkable. No acute fracture. Soft tissues: Unremarkable. CT/CT head wo con* [id number] IMPRESSION: No large territorial infarct or intracranial bleed.
[2024-11-27 22:06] LABS: Hematocrit 38.8 % (36-47); Hemoglobin 12.90 g/dL (11.27-16.99); Mean Corpuscular HGB Conc 33.2 g/dL (30-55); Mean Corpuscular Hemoglobin 31.3 pg (27-33); Mean Corpuscular Volume 94.2 fl (85-98); Nucleated Red Blood Cells % 0 %; Platelet Count 224 10^3/cmm (157-399); Red Blood Count 4.12 10^6/uL (3.85-5.65); White Blood Count 8.38 10^3/uL (3.29-11.43)
[2024-11-27 22:25] LABS: Lactic Sepsis W/Reflex 1.2 mmol/L (0.5-2.2)
[2024-11-27 22:29] VITALS: BP 131/80; PULSE 88; RESP 15; O2SAT 97
[2024-11-27 22:30] VITALS: BP 118/81; PULSE 93; O2SAT 96
[2024-11-27 22:35] LABS: Alanine Aminotransferase 22 U/L (0-33); Albumin Level 4.4 g/dL (3.5-5.2); Alkaline Phosphatase 39 U/L (35-105); Anion Gap 15.8 (5-19); Aspartate Amino Transferase 20 U/L (0-32); Blood Urea Nitrogen 23 mg/dL (6-20); Calcium 8.9 mg/dL (8.5-10.5); Carbon Dioxide 26 mmol/L (22-29); Chloride 103 mmol/L (98-107); Creatinine Clr Calc Pharmacy 200.4276; Globulin 2.6 g/dL (1.3-4.6); Glucose 119 mg/dL (65-115); Magnesium 2.0 mg/dL (1.7-2.3); Osmolality Calculated 297 mOsm/kg (285-295); Potassium 3.8 mmol/L (3.5-5.1); Sodium 141 mmol/L (136-145); Thyroid Stimulating Hormone 0.84 uIU/mL (0.27-4.20); Total Protein 7.0 g/dL (6.6-8.7)
[2024-11-27 22:37] LABS: Alcohol Level < 10 mg/dL (0-10)
--- NOTE | 2024-11-27 22:37 | W.ED.SYNCOPE ---
HPI - Syncope General: Chief Complaint: Syncope Stated Complaint: Vomiting,passed out, fell had seizure activity Time Seen by Provider: 11/27/24 21:49 History of Present Illness: Patient is 49-year-old female, was sitting on the toilet, had nausea and vomiting on the toilet, when she fell forward on her face, and hit the floor. did hear her fall however it was unwitnessed. She had a few seconds of LOC. She was dazed after these events. This occurred approximately 1900. helped patient up, and was on the couch after this point. On the couch, patient had LOC, and shaking after her LOC. Associated symptoms: Reports vertigo; Deny abdominal pain, chest pain, fever(s), headache(s) or nausea Related Data Home Medications ?Medication ?Instructions ?Recorded ?Confirmed mineral oil 15 ml PO DAILY PRN 09/01/20 08/22/24 Previous Rx's ?Medication ?Instructions ?Recorded oxycodone 10 mg tablet 10 mg PO .5 times daily PRN pain 02/16/21 30 days #150 tabs cholecalciferol (vitamin D3) 125 See Rx Instructions .Route 03/22/21 mcg (5,000 unit) capsule .COMPLEX #90 caps naloxone 4 mg/actuation nasal spray 4 mg intranasal Q2M #2 ea 07/19/21 oxycodone 10 mg tablet 10 mg PO .5times aday PRN pain 30 09/20/21 days #150 tabs [id number] 3.5 1 drp ophthalmic (eye) Q8H 7 days 06/17/22 mg/mL-10,000 unit/mL-0.1% eye #5 mL drops (Maxitrol) fluticasone propionate 50 2 spray intranasal DAILY #16 grams 03/13/23 mcg/actuation nasal spray,suspension (Flonase Allergy Relief) linaclotide 72 mcg capsule 72 mcg PO QAM #90 caps 03/13/23 (Linzess) tizanidine 4 mg tablet See Rx Instructions .Route 03/13/23 .COMPLEX #120 tabs escitalopram oxalate 20 mg tablet See Rx Instructions .Route 11/07/23 .COMPLEX #90 tabs diclofenac potassium 50 mg tablet See Rx Instructions .Route 12/12/23 .COMPLEX #60 tabs levothyroxine 50 mcg tablet See Rx Instructions .Route 01/15/24 .COMPLEX #7 tabs liothyronine 5 mcg tablet See Rx Instructions .Route 09/05/24 .COMPLEX #30 tabs liraglutide 0.6 mg/0.1 mL (18 mg/3 1.8 mg (0.3 mL) SUBCUT DAILY #27 mL 10/23/24 mL) subcutaneous pen injector ondansetron 8 mg disintegrating 8 mg PO Q6H #14 tabs 11/05/24 tablet promethazine 25 mg rectal 25 mg WA Q6H PRN nausea and 11/05/24 suppository vomiting #12 ea ketorolac 10 mg tablet 10 mg PO Q8H PRN pain 5 days #14 11/28/24 tabs methocarbamol 750 mg tablet 750 mg PO Q8H PRN muscle spasm #30 11/28/24 tabs ondansetron 4 mg disintegrating 4 mg PO Q8H PRN nausea and 11/28/24 tablet vomiting 4 days #14 tabs Allergies Allergy/AdvReac Type Severity Reaction Status Date / Time tramadol Allergy Mild ADR-Itching Verified 11/27/24 20:32 gabapentin AdvReac Mild palpitation Verified 11/27/24 20:32 s Review of Systems General: Reports: 10 or more systems reviewed and unremarkable except in HPI and below Const: Reports: malaise; Denies: fever(s) or chills Eyes: Denies: change in vision or blurry vision ENMT: Denies: throat pain or nasal discharge Card: Denies: chest pain or palpitations Resp: Denies: dyspnea or non-productive cough GI: Denies: abdominal pain, nausea or vomiting Musc: Reports: extremity pain and joint pain; Denies: neck pain, back pain or joint swelling Neuro: Reports: dizziness, vertigo and seizure-like activity (question of shaking after brief loc); Denies: headache(s), numbness in extremities, weakness in extremities, sensory changes, lack of coordination, difficulty walking, frequent falls, confusion or Slurred speech present PFSH ED PFSH: Medical History (Updated 11/28/24 @ 00:09 by COSMO Baron) Plantar fasciitis of left foot surgery for this Encounter for long-term (current) use of NSAIDs Opioid contract exists Encounter for long-term use of opiate analgesic Back pain of lumbosacral region with sciatica Surgical History S/P cholecystectomy H/O vaginal surgery 08/19/2020- Posterior colporrhaphy, Sacrospinous ligament fixation, Single incision mid urethral sling and suburethral incision revision performed by Dr. Oconnell at [facility] History of hysterectomy H/O knee surgery Family History Mother Hyperlipidemia Thyroid disease Grandmother Hyperlipidemia maternal Thyroid disease maternal Sister Thyroid disease x2 Family/Other Breast cancer maternal side but unknown who Other CAD (coronary artery disease) Diabetes Hypertension Denies family history of Colon cancer Ovarian cancer Clotting disorder Bleeding disorder Uterine cancer Stroke Social History Smoking and tobacco/nicotine status: never used tobacco/nicotine Second hand smoke exposure: Yes Alcohol intake: never Substance/Drug Use: never Caregiver/support person: Yes (spouse) Lives independently: Yes Household members: spouse and none Marital status: service: No Current occupational status: employed Current occupation: [employer] Current gender identity: Female Special lexi needs: No Agree to transfusion: Yes Physical Exam Const: COMMON NORMALS: patient oriented x3 HENMT: COMMON NORMALS: normocephalic and atraumatic HEAD & SCALP: normocephalic and atraumatic Lymph: LYMPHATIC: no lymphadenopathy noted Chest: COMMONS NORMALS: normal inspection of the chest and normal palpation of entire chest wall Resp: COMMON NORMALS: normal respiratory effort, No retractions and clear to auscultation bilaterally AUSCULTATION: clear to auscultation bilaterally GI: COMMON NORMALS: Normal to inspection, nondistended, normoactive bowel sounds present, Soft to palpation, non-tender and No hepatosplenomegaly present PALPATION: Yes Soft to palpation and Yes No hepatosplenomegaly present : COMMON NORMALS: Yes no CVA tenderness BLADDER/KIDNEY EXAM: Yes no CVA tenderness Back/Pelvis: COMMON NORMALS: no CVA tenderness Extremity: COMMON NORMALS: normal to inspection, full ROM and capillary refill normal Neuro: COMMON NORMALS: patient oriented x3 and CN's II-XII intact bilaterally Course Reevaluation(s): Reevaluation #1: Improved after Toradol and Norflex Vital Signs: Vital signs: Vital Signs Temperature 98.7 F 11/27/24 20:21 Pulse Rate 99 11/28/24 00:27 Respiratory Rate 13 11/27/24 23:30 Blood Pressure 109/82 11/28/24 00:27 Pulse Oximetry 96 11/28/24 00:27 Oxygen Delivery Me thod Room Air 11/27/24 20:21 MDM - Syncope Medical Decision Making Patient is a 49-year-old female with syncope after nausea and vomiting the first time, then on the couch witnessed by her . She had a shaking episode after second syncope. She had brief LOC. She recalls all the events before and even a few seconds after just after her brief LOC. This appears to be very consistent with vasovagal syndrome. She does not have any injury. There is no bleed. No other acute concerns. Patient is to hydrate, take care of her nausea, vomiting, and pain was addressed. All of her questions answered to her satisfaction Medical Records I reviewed the patient's medical records. Lab Data I reviewed the patient's lab results. 11/27/24 22:00 11/27/24 22:[address] 11/27/24 21:51 IMPRESSION: No large territorial infarct or intracranial bleed. Shoulder X-Ray 11/27/24 23:35 IMPRESSION: No acute fracture or dislocation. Laboratory Results WBC 8.38 10^3/uL (3.29-11.43) 11/27/24 22:00 RBC 4.12 10^6/uL (3.85-5.65) 11/27/24 22:00 Hgb 12.90 g/dL (11.27-16.99) 11/27/24 22:00 Hct 38.8 % (36-47) 11/27/24 22:00 MCV 94.2 fl (85-98) 11/27/24 22:00 MCH 31.3 pg (27-33) 11/27/24 22:00 MCHC 33.2 g/dL (30-55) 11/27/24 22:00 RDW 12.4 % (12.1-15.1) 11/27/24 22:00 Plt Count 224 10^3/cmm (157-399) 11/27/24 22:00 MPV 10.1 fL (7.4-10.4) 11/27/24 22:00 Neut % (Auto) 91.2 % 11/27/24 22:00 Lymph % (Auto) 2.3 % 11/27/24 22:00 [place] % (Auto) 5.4 % 11/27/24 22:00 Eos % (Auto) 0.7 % 11/27/24 22:00 Baso % (Auto) 0.2 % 11/27/24 22:00 Neut # (Auto) 7.64 10^3/uL (1.8-7.7) 11/27/24 22:00 Lymph # (Auto) 0.2 10^3/uL (0.8-4.8) L 11/27/24 22:00 [place] # (Auto) 0.5 10^3/uL (0.2-0.9) 11/27/24 22:00 Eos # (Auto) 0.1 10^3/uL (0.0-0.8) 11/27/24 22:00 Baso # (Auto) 0.0 10^3/uL (0.0-0.1) 11/27/24 22:00 Nucleated RBC % (auto) 0 % 11/27/24 22:00 Nucleated RBCs # 0.0 /100WBC 11/27/24 22:00 ESR 8 mm/hr (0-15) 11/27/24 22:00 Sodium 141 mmol/L (136-145) 11/27/24 22:00 Potassium 3.8 mmol/L (3.5-5.1) 11/27/24 22:00 Chloride 103 mmol/L (98-107) 11/27/24 22:00 Carbon Dioxide 26 mmol/L (22-29) 11/27/24 22:00 Anion Gap 15.8 (5-19) 11/27/24 22:00 BUN 23 mg/dL (6-20) H 11/27/24 22:00 Creatinine 0.5 mg/dL (0.5-0.9) 11/27/24 22:00 GFR Calculation 131.1 mL/min (90-130) H 11/27/24 22:00 Glucose 119 mg/dL (65-115) H 11/27/24 22:00 Calculated Osmolality 297 mOsm/kg (285-295) H 11/27/24 22:00 Lactic Acid 1.2 mmol/L (0.5-2.2) 11/27/24 22:00 Calcium 8.9 mg/dL (8.5-10.5) 11/27/24 22:00 Magnesium 2.0 mg/dL (1.7-2.3) 11/27/24 22:00 Total Bilirubin 0.4 mg/dL (0.15-1.2) 11/27/24 22:00 AST 20 U/L (0-32) 11/27/24 22:00 ALT 22 U/L (0-33) 11/27/24 22:00 Alkaline Phosphatase 39 U/L (35-105) 11/27/24 22:00 Creatine Kinase 114 U/L (26-192) 11/27/24 22:00 Total Protein 7.0 g/dL (6.6-8.7) 11/27/24 22:00 Albumin 4.4 g/dL (3.5-5.2) 11/27/24 22:00 Globulin 2.6 g/dL (1.3-4.6) 11/27/24 22:00 TSH 0.84 uIU/mL (0.27-4.20) 11/27/24 22:00 Prolactin 6.64 ng/mL (4.8-23.3) 11/27/24 22:00 Urine Color Yellow (Yellow) 11/27/24 23:20 Urine Appearance Clear (CLEAR) 11/27/24 23:20 Urine pH 5.5 (5-7) 11/27/24 23:20 Ur Specific [place] 1.026 (1.005-1.030) 11/27/24 23:20 Urine Protein Negative (Negative) 11/27/24 23:20 Urine Glucose (UA) Negative (Normal) 11/27/24 23:20 Urine Ketones Negative (Negative) 11/27/24 23:20 Urine Blood 1+ (Negative) A 11/27/24 23:20 Urine Nitrate Negative (Negative) 11/27/24 23:20 Urine Bilirubin Negative (Negative) 11/27/24 23:20 Urine Urobilinogen 1.0 mg/dL (Negative) 11/27/24 23:20 Ur Leukocyte Esterase Negative (Negative) 11/27/24 23:20 Urine RBC 6-10 /hpf (0-2) 11/27/24 23:20 Urine WBC 0-5 /hpf (0-5) 11/27/24 23:20 Ur Squamous Epith Cells 0-5 /hpf (0-5) 11/27/24 23:20 Amorphous Sediment Not Reportable 11/27/24 23:20 Urine Bacteria None seen /hpf (NONE) 11/27/24 23:20 Hyaline Casts 0.40 /lpf 11/27/24 23:20 Urine Opiates Screen Negative ng/mL (Negative) 11/27/24 23:20 Ur Barbiturates Screen Negative ng/mL (Negative) 11/27/24 23:20 Ur Phencyclidine Scrn Negative ng/mL (Negative) 11/27/24 23:20 Ur Amphetamines Screen Negative ng/mL (Negative) 11/27/24 23:20 U Benzodiazepines Scrn Negative ng/mL (Negative) 11/27/24 23:20 Urine Cocaine Screen Negative ng/mL (Negative) 11/27/24 23:20 U Marijuana (THC) Screen Negative ng/mL (Negative) 11/27/24 23:20 Ethyl Alcohol < 10 mg/dL (0-10) 11/27/24 22:00 All radiology interpretation(s) finalized by discharge Discharge Plan Discharge Patient Disposition: Home Clinical Impression: Vasovagal syncope Nausea & vomiting Qualifiers: Vomiting type: bilious vomiting Qualified Code(s): R11.14 - Bilious vomiting Condition: Stable Prescriptions: New ketorolac 10 mg tablet 10 mg PO Q8H PRN (Reason: pain) 5 Days Qty: 14 0RF methocarbamol 750 mg tablet 750 mg PO Q8H PRN (Reason: muscle spasm) Qty: 30 0RF ondansetron 4 mg tablet,disintegrating 4 mg PO Q8H PRN (Reason: nausea and vomiting) 4 Days Qty: 14 0RF No Action mineral oil Oil 15 ml PO DAILY PRN oxycodone 10 mg tablet 10 mg PO .5 times daily PRN (Reason: pain) 30 Days Qty: 150 0RF Rx Instructions: fill on or after 02/17/21 neomycin-polymyxin B-dexameth [Maxitrol] 3.5mg/mL-10,000 unit/mL-0.1 % drops,suspension 1 drp ophthalmic (eye) Q8H 7 Days Qty: 5 0RF fluticasone propionate [Flonase Allergy Relief] 50 mcg/actuation spray,suspension 2 spray intranasal DAILY Qty: 16 12RF Rx Instructions: administer into each nostril Linzess 72 mcg capsule 72 mcg PO QAM Qty: 90 1RF tizanidine 4 mg tablet See Rx Instructions .ROUTE .COMPLEX Qty: 120 5RF Dose Instruction: TAKE 1 TABLET BY MOUTH FOUR TIMES DAILY FOR MUSCLE SPASMS Rx Instructions: TAKE 1 TABLET BY MOUTH FOUR TIMES DAILY FOR MUSCLE SPASMS cholecalciferol (vitamin D3) 125 mcg (5,000 unit) capsule See Rx Instructions .ROUTE .COMPLEX Qty: 90 1RF Dose Instruction: TAKE ONE CAPSULE BY MOUTH EVERY DAY Rx Instructions: TAKE ONE CAPSULE BY MOUTH EVERY DAY naloxone 4 mg/actuation spray,non-aerosol 4 mg intranasal Q2M Qty: 2 0RF Rx Instructions: spray 1 dose into ONE nostril; alternate nostrils w each dose until help arrives oxycodone 10 mg tablet 10 mg PO .5times aday PRN (Reason: pain) 30 Days Qty: 150 0RF escitalopram oxalate 20 mg tablet See Rx Instructions .ROUTE .COMPLEX Qty: 90 1RF Dose Instruction: TAKE 1 TABLET BY MOUTH DAILY Rx Instructions: TAKE 1 TABLET BY MOUTH DAILY diclofenac potassium 50 mg tablet See Rx Instructions .ROUTE .COMPLEX Qty: 60 0RF Dose Instruction: TAKE 1 TABLET BY MOUTH THREE TIMES DAILY FOR ARTHRITIS Rx Instructions: TAKE 1 TABLET BY MOUTH THREE TIMES DAILY FOR ARTHRITIS levothyroxine 50 mcg tablet See Rx Instructions .ROUTE .COMPLEX Qty: 7 0RF Dose Instruction: TAKE 1 TABLET BY MOUTH DAILY Rx Instructions: TAKE 1 TABLET BY MOUTH DAILY liothyronine 5 mcg tablet See Rx Instructions .ROUTE .COMPLEX Qty: 30 5RF Dose Instruction: TAKE 1 TABLET BY MOUTH DAILY Rx Instructions: TAKE 1 TABLET BY MOUTH DAILY liraglutide 0.6 mg/0.1 mL (18 mg/3 mL) pen injector 1.8 mg SUBCUT DAILY Qty: 27 1RF promethazine 25 mg suppository 25 mg WA Q6H PRN (Reason: nausea and vomiting) Qty: 12 0RF ondansetron 8 mg tablet,disintegrating 8 mg PO Q6H Qty: 14 0RF Rx Instructions: Take 1/2-1 tab every 6 hours as needed for nausea and vomiting Discharge Orders: Discharge ED (Routine); Ordered 11/28/24 Ordered By: Delmis Wood Referrals: Raúl Germain DO [Primary Care Provider, Family Practice] Discharge Diet: Clear Liquid Discharge Activity: Resume usual activity Patient Instructions: Syncope (ED), Patient Portal & [place] Instructions Activity Restrictions/Additional Instructions: - Clear liquid diet until your nausea and vomiting resolves. Zofran/ondansetron has been sent to the pharmacy -Do not use your diclofenac with your ketorolac/Toradol I sent to the pharmacy. They are similar classes, and it can disturb your abdomen for ulcer. - You can add Tylenol to your ketorolac/Toradol. Maximum dosage has been sent to the pharmacy. -Methocarbamol/Robaxin was sent to the pharmacy for one-time dose. This will take the place of tizanidine. - No concern for additional abnormal findings were found. - Follow-up with your primary care physician. Thank you for choosing [facility] for your healthcare needs today. You have been screened and evaluated and felt safe for discharge. Health conditions do change or evolve sometimes and as such it is important that you follow up with your Primary Doctor to be re checked, 3-5 days is a general good time frame for follow up. You are always welcome to return to the ED for re assessment if your symptoms are worsening or you have new concerns Stand Alone Forms: Work/School Release Print Language: Hungarian Coding Level of Care Code ED Youth Worker for Guillermo Brannon
[2024-11-27 23:21] VITALS: BP 129/83; PULSE 90; O2SAT 95
[2024-11-27 23:30] VITALS: BP 104/80; PULSE 93; RESP 13; O2SAT 98
--- NOTE | 2024-11-27 23:35 | XRR_ITS ---
PROCEDURE INFORMATION: Exam: XR Right Shoulder Exam date and time: 11/27/2024 11:38 PM Age: 49 years old Clinical indication: Pain; Shoulder; Right; Additional info: RT shoulder pain TECHNIQUE: Imaging protocol: Radiologic exam of the right shoulder. Views: 2 or more views. COMPARISON: CR XR chest 2V* [id number] 07/05/2021 4:24 PM FINDINGS: Bones/joints: Normal. Soft tissues: Normal. XR/XR shoulder RT min 2V* [id number] IMPRESSION: No acute fracture or dislocation.
[2024-11-27] MEDS: ondansetron hcl ODT 4 mg Tab PO (23:39)
[2024-11-27 23:40] LABS: Glucose Urine UA Negative (Normal); Nitrate Urine Negative (Negative); Specific Gravity, Urine 1.026 (1.005-1.030)
[2024-11-27 23:45] LABS: Add Urine Microscopic? YES
[2024-11-27 23:48] LABS: PCP Screen Urine Negative (Negative)
[2024-11-27] MEDS: orphenadrine 30 mg/mL Inj 2 mL 60 MG IM (23:48)
[2024-11-28 00:27] VITALS: BP 109/82; PULSE 99; O2SAT 96
== END 2024-11-28 00:28 | disposition home or self-care (01) ==
PROVIDERS: Emergency Provider Physician Assistant; PCP Electrodiagnostic Medicine
DX: R55 Syncope and collapse (principal); R11.14 Bilious vomiting
CPT/HCPCS: 36415; 70450; 73030; 80053; 80306; 80307; 81001; 82550; 83605; 83735; 84146; 84443; 85025; 85651; 93005; 96361; 96372; 96374; 99285; J1885; J2360; J7030; Q0162